=== PATIENT | female | born 1950 | race Caucasian/White ===

== ENCOUNTER 2016-10-11 09:57 | Emergency (ER) | payer MEDICARE ==
[~2016-10-11] VITALS: Ht 160 cm; Wt 75.0 kg
[~2016-10-11 09:57] MED LIST: ALPR.25 PO; CALTTAB PO; FAMO40TA PO; FURO40TA PO; GABA400C5 PO; PHEN100 PO; PREG100 PO; PROT40TA PO; SERO100T PO; SERT100 PO
[2016-10-11 09:58] VITALS: BP 191/85; PULSE 85; RESP 14; TEMP 98.4; O2SAT 96
[2016-10-11] MEDS ORDERED: FAMO40TA PO (10:42)
[2016-10-11] MEDS ORDERED: CALTTAB PO (10:42)
[2016-10-11] MEDS ORDERED: ALPR.25 PO (10:42)
[2016-10-11] MEDS ORDERED: GABA100C4 PO (10:42)
[2016-10-11] MEDS ORDERED: LYRI200C PO (10:42)
[2016-10-11] MEDS ORDERED: SERO100T PO (10:44)
[2016-10-11] MEDS ORDERED: LYRI100C PO (10:44)
[2016-10-11] MEDS ORDERED: PANT20 PO (10:44)
[2016-10-11] MEDS ORDERED: PHEN100C PO (10:44)
[2016-10-11] MEDS ORDERED: ZOLO100T PO (10:44)
--- NOTE | 2016-10-11 10:44 | PD ---
HPI Chief Complaint: Dizziness Time Seen by Provider: 10:26 Travel History International Travel<30 days: No Contact w/Intl Traveler<30days: No Traveled to known affect area: No History of Present Illness HPI This is a 66-year-old female who presents to the emergency department with dizziness that's been going on over the past week, worsening, associated with several falls. She describes the dizziness as lightheadedness. She said the worst fall was yesterday when she fell in her bathtub and hit her head. She did not pass out at the time. She denies any loss of bowel or bladder, denies any chest pain or shortness of breath. She says she always feels little bit dizzy but over the past week it's been much worse. She doesn't feel like this is vertigo and denies the room spinning. She does have a history of DVT and is currently off of anticoagulation. She also used to be on a diuretic but is not taking that anymore either. She is not sure why she had the DVT and doesn't know why she was on the diuretic but thinks it was for the blood clot. She walks with a walker and lives alone. PFSH Past Medical History Arthritis: Yes Asthma: No Autoimmune Disease: No Anxiety: Yes Depression: Yes Cancer: No Cardiovascular Problems: No Chest Pain: No Cerebrovascular Accident: No Diabetes: No Diminished Hearing: No Deep Vein Thrombosis: Yes Endocrine: No Gastrointestinal Disorders: Yes GERD: Yes Genitourinary: Yes Headaches: Yes Hypertension: Yes Immune Disorder: No Kidney Stones: No Musculoskeletal: Yes (SCIATICA) Neurologic: Yes Psychiatric: Yes Reproductive: No Respiratory: No Immunizations Current: Yes Migraines: No Myocardial Infarction: No Seizures: Yes Sleep Apnea: No Thyroid Disease: No Ulcer: No Menopausal: Yes : 3 Para: 3 Tubal Ligation: Yes Past Surgical History Appendectomy: Yes Gynecologic Surgery: Yes (HYSTERECTOMY, TUBAL LIGATION) Hysterectomy: Yes Pacemaker: No Tonsillectomy: Yes Social History Alcohol Use: No Tobacco Use: No (QUIT IN 2003) Substance Use: No Allergies-Medications (Allergen,Severity, Reaction): Coded Allergies: No Known Allergies (Verified , 10/11/16) Reported Meds & Prescriptions Reported Meds & Active Scripts Active Reported Zoloft (Sertraline HCl) 100 Mg Tab 100 Mg PO DAILY Seroquel (Quetiapine Fumarate) 100 Mg Tab 100 Mg PO BID Phenytoin Extended 100 Mg Cap 100 Mg PO TID Protonix (Pantoprazole Sodium) 20 Mg Tab 20 Mg PO DAILY Lyrica (Pregabalin) 100 Mg Cap 100 Mg PO BID Gabapentin 100 Mg Cap 100 Mg PO BID Famotidine 40 Mg Tab 40 Mg PO BID Caltrate 600+D (Calcium Carbonate-Cholecalciferol) 600-800 Mg-Unit Tab 1 Tab PO BID Xanax (Alprazolam) 0.25 Mg Tab 0.25 Mg PO Q4H PRN Review of Systems Except as stated in HPI: all other systems reviewed are Neg Physical Exam Narrative GENERAL:Well appearing, no acute distress SKIN: Warm and dry. HEAD: Atraumatic. Normocephalic. EYES: Pupils equal and round. No injection or drainage. ENT: Moist mucous membranes NECK: Trachea midline. CARDIOVASCULAR: Regular rate and rhythm. No murmur appreciated. 2+ bilateral pitting edema RESPIRATORY: Clear to auscultation. Breath sounds equal bilaterally. GASTROINTESTINAL: Abdomen soft, non-tender, nondistended. MUSCULOSKELETAL: No obvious deformities. NEUROLOGICAL: Awake and alert. No obvious cranial nerve deficits. Moving all extremities. PSYCHIATRIC: Appropriate mood and affect; insight and judgment normal. Data Data Last Documented VS Vital Signs Date Time Temp Pulse Resp B/P Pulse Ox O2 Delivery O2 Flow Rate FiO2 10/11/16 09:58 98.4 85 14 191/85 96 Room Air Orders Electrocardiogram (10/11/16 10:41) Complete Blood Count With Diff (10/11/16 10:41) Comprehensive Metabolic Panel (10/11/16 10:41) B-Type Natriuretic Peptide (10/11/16 10:41) Troponin I (10/11/16 10:41) Urinalysis - C+S If Indicated (10/11/16 10:41) Chest, Single Ap (10/11/16 10:41) Ct Brain W/O Iv Contrast(Rout) (10/11/16 10:41) Ecg Monitoring (10/11/16 10:41) Iv Access Insert/Monitor (10/11/16 10:41) Oximetry (10/11/16 10:41) Sodium Chloride 0.9% Flush (Ns Flush) (10/11/16 10:45) D-Dimer (10/11/16 10:41) Urine Culture (10/11/16 11:05) Labs Laboratory Tests Test 10/11/16 10/11/16 10:55 11:05 White Blood Count 8.6 TH/MM3 Red Blood Count 4.33 MIL/MM3 Hemoglobin 13.4 GM/DL Hematocrit 39.5 % Mean Corpuscular Volume 91.1 FL Mean Corpuscular Hemoglobin 30.9 PG Mean Corpuscular Hemoglobin 33.9 % Concent Red Cell Distribution Width 13.9 % Platelet Count 251 TH/MM3 Mean Platelet Volume 8.5 FL Neutrophils (%) (Auto) 50.7 % Lymphocytes (%) (Auto) 36.3 % Monocytes (%) (Auto) 9.2 % Eosinophils (%) (Auto) 3.3 % Basophils (%) (Auto) 0.5 % Neutrophils # (Auto) 4.3 TH/MM3 Lymphocytes # (Auto) 3.1 TH/MM3 Monocytes # (Auto) 0.8 TH/MM3 Eosinophils # (Auto) 0.3 TH/MM3 Basophils # (Auto) 0.0 TH/MM3 CBC Comment DIFF FINAL Differential Comment D-Dimer Quantitative (PE/DVT) 0.33 MG/L FEU Sodium Level 139 MEQ/L Potassium Level 4.3 MEQ/L Chloride Level 105 MEQ/L Carbon Dioxide Level 25.4 MEQ/L Anion Gap 9 MEQ/L Blood Urea Nitrogen 16 MG/DL Creatinine 0.89 MG/DL Estimat Glomerular Filtration 63 ML/MIN Rate Random Glucose 89 MG/DL Calcium Level 8.6 MG/DL Total Bilirubin 0.2 MG/DL Aspartate Amino Transf 21 U/L (AST/SGOT) Alanine Aminotransferase 25 U/L (ALT/SGPT) Alkaline Phosphatase 91 U/L Troponin I LESS THAN 0.02 NG/ML B-Type Natriuretic Peptide 14 PG/ML Total Protein 7.2 GM/DL Albumin 3.6 GM/DL Urine Color YELLOW Urine Turbidity CLOUDY Urine pH 6.5 Urine Specific Korbel 1.018 Urine Protein TRACE mg/dL Urine Glucose (UA) NEG mg/dL Urine Ketones NEG mg/dL Urine Occult Blood SMALL Urine Nitrite POS Urine Bilirubin NEG Urine Urobilinogen LESS THAN 2.0 MG/DL Urine Leukocyte Esterase LARGE Urine RBC 14 /hpf Urine WBC /hpf Urine WBC Clumps FEW Urine Squamous Epithelial 7 /hpf Cells Urine Transitional Epithelial 1 /hpf Cells Urine Bacteria MANY /hpf Urine Mucus FEW /lpf Microscopic Urinalysis Comment CULTURE INDICATED MDM Medical Decision Making Medical Screen Exam Complete: Yes Emergency Medical Condition: Yes Interpretation(s) EKG: Normal sinus rhythm with no ST changes No leukocytosis Electrolytes within normal limits Troponin normal BNP normal D-dimer normal Urinalysis: Infection Differential Diagnosis Intracranial hemorrhage, arrhythmia, seizure, aortic stenosis, dehydration, urinary tract infection, pulmonary embolism Narrative Course This is a 66-year-old female who presents to the emergency department having had frequent falls, dizziness, and generalized weakness. She has a normal neurologic exam. She is placed on a monitor and an IV was established. Labs are obtained which were all reassuring including a normal troponin and normal d- dimer. EKG was reassuring with no evidence of arrhythmia. Urinalysis demonstrates a urinary tract infection which I suspect is the etiology of her symptoms. Patient was given a dose of IV ceftriaxone and will be discharged on Keflex. Diagnosis Primary Impression: UTI (urinary tract infection) Qualified Code: N30.01 - Acute cystitis with hematuria Patient Instructions: General Instructions Additional Instructions: If you develop fever, persistent vomiting, back pain, or inability to eat return to the emergency department as your urine infection may have progressed to a kidney infection. Complete your antibiotics as prescribed. Stay well hydrated with Gatorade or water. Followup with your primary care physician in 2-3 days if your symptoms have not resolved. Med/Other Pt SpecificInfo: Prescription(s) given Scripts Cephalexin (Keflex)500 Mg [id number] Mg PO Q12H 7 Days Ref 0 Prov:Deepali Escamilla MD 10/11/16 Disposition: 01 DISCHARGE HOME Condition: Stable Deepali Escamilla MD Oct 11, 2016 10:44
[2016-10-11] MEDS ORDERED: SODIUM CHLORIDE 0.9% FLUSH 5 ML FLUSH IVF PRN (10:45)
[2016-10-11 11:24] LABS: AUTOMATED NEUTROPHIL # 4.3 TH/MM3 (1.8-7.7); BASOPHIL % 0.5 % (0.0-2.0); EOSINOPHIL # 0.3 TH/MM3 (0-0.4); EOSINOPHIL % 3.3 % (0.0-4.0); HEMATOCRIT 39.5 % (35.0-46.0); HEMO FLAGS DIFF FINAL; LYMPH % 36.3 % (9.0-44.0); LYMPHOCYTE # 3.1 TH/MM3 (1.0-4.8); MEAN CELL VOLUME 91.1 FL (80.0-100.0); MEAN CORPUSCULAR HEMOGLOBIN 30.9 PG (27.0-34.0); MEAN CORPUSCULAR HGB CONC 33.9 % (32.0-36.0); MONO % 9.2 % (0.0-8.0); NEUT % 50.7 % (16.0-70.0); PLATELET COUNT 251 TH/MM3 (150-450); RED BLOOD COUNT 4.33 MIL/MM3 (4.00-5.30); RED CELL DISTRIBUTION WIDTH 13.9 % (11.6-17.2); WHITE BLOOD COUNT 8.6 TH/MM3 (4.0-11.0)
--- NOTE | 2016-10-11 11:36 | RADRPT ---
EXAM DATE/TIME: 10/11/2016 11:10 [facility] COMPARISON: CT BRAIN W/O CONTRAST, October 25, 2014, 14:20. INDICATIONS : Dizziness and multiple falls x 1 week. RADIATION DOSE: 46.17 CTDIvol (mGy) MEDICAL HISTORY : Deep venous thrombosis. Seizures. Hypertension. SURGICAL HISTORY : Hysterectomy. Tubal ligation. ENCOUNTER: Initial ACUITY: 1 week PAIN SCALE: 4/10 LOCATION: cranial TECHNIQUE: Multiple contiguous axial images were obtained of the head. Using automated exposure control and adj ustment of the mA and/or kV according to patient size, radiation dose was kept as low as reasonably a chievable to obtain optimal diagnostic quality images. FINDINGS: CEREBRUM: The ventricles are normal for age. No evidence of midline shift, mass lesion, hemorrhage or acute in farction. No extra-axial fluid collections are seen. POSTERIOR FOSSA: The cerebellum and brainstem are intact. The 4th ventricle is midline. The cerebellopontine angle i s unremarkable. EXTRACRANIAL: The visualized portion of the orbits is intact. SKULL: The calvaria is intact. No evidence of skull fracture. CONCLUSION: Normal examination for a patient of this age. Flo Joy MD on October 11, 2016 at 11:35 Board Certified Radiologist. This report was verified electronically.
[2016-10-11 11:39] LABS: ALT (GPT) 25 U/L (10-53); ANION GAP 9 MEQ/L (5-15); AST (GOT) 21 U/L (15-37); BICARBONATE 25.4 MEQ/L (21.0-32.0); BLOOD UREA NITROGEN 16 MG/DL (7-18); CHLORIDE 105 MEQ/L (98-107); GLOMERULAR FILTRATION RATE 63 ML/MIN (>89); POTASSIUM 4.3 MEQ/L (3.5-5.1); SODIUM (NA) 139 MEQ/L (136-145)
--- NOTE | 2016-10-11 11:41 | RADRPT ---
EXAM DATE/TIME: 10/11/2016 11:16 [facility] COMPARISON: CHEST SINGLE AP, October 25, 2014, 14:11. INDICATIONS : Syncope, falls,weakness, x1 week. MEDICAL HISTORY : None. SURGICAL HISTORY : None. ENCOUNTER: Initial ACUITY: 2 days PAIN SCORE: 0/10 LOCATION: Bilateral chest FINDINGS: A single view of the chest demonstrates the lungs to be symmetrically aerated without evidence of mas s, infiltrate or effusion. The cardiomediastinal contours are unremarkable. Osseous structures are intact. Right upper lobe scarring. CONCLUSION: No acute disease. Flo Joy MD on October 11, 2016 at 11:39 Board Certified Radiologist. This report was verified electronically.
[2016-10-11 11:43] LABS: ALKALINE PHOSPHATASE 91 U/L (45-117); TOTAL BILIRUBIN ADULT 0.2 MG/DL (0.2-1.0)
[2016-10-11 11:55] LABS: BACTERIA, URINE MANY /hpf; BLOOD, URINE SMALL (NEG); COMMENT (UR) CULTURE INDICATED; CULTURE IF INDICATED CULTURE INDICATED; GLUCOSE,URINE NEG (NEG); KETONE, URINE NEG (NEG); MUCUS URINE FEW /lpf (OCC); PH, URINE 6.5 (5.0-8.5); SQUAMOUS EPITHELIAL CELL URINE 7 /hpf (0-5); TRANSITIONAL EPI CELLS, URINE 1 /hpf; URINE COLOR YELLOW (YELLW/STRAW)
[2016-10-11 11:56] LABS: NITRITE,URINE POS (NEG)
[2016-10-11] MEDS ORDERED: cefTRIAXone INJ 1,000 MG in SODIUM CHLORIDE 0.9% INJ 100 ML IV ONE (12:15)
[2016-10-11] MEDS ORDERED: CEPH-460 PO (12:22)
[2016-10-11 12:26] VITALS: BP 154/91; PULSE 76; RESP 17; O2SAT 98
--- NOTE | 2016-10-11 18:33 | EKG ---
Date Performed: 10/11/2016 Time Performed: 10:49:14 PTAGE: 66 years EKG: Sinus rhythm Since previous tracing, no significant change noted NORMAL ECG PREVIOUS TRACING : 10/28/2014 18.48 DOCTOR: Loyda Hull Interpretating Date/Time 10/11/2016 18:31:46
== END 2016-10-11 13:19 | disposition home or self-care (01) ==
LOC: NEPC 09:57
DX: N39.0 Urinary tract infection, site not specified (principal); Z86.718 Personal history of other venous thrombosis and embolism; B96.20 Unspecified Escherichia coli [E. coli] as the cause of diseases classified elsewhere; R53.1 Weakness; R55 Syncope and collapse; I10 Essential (primary) hypertension; Z91.81 History of falling
CPT/HCPCS: 70450; 71010; 80053; 81001; 83880; 84484; 85025; 85379; 87077; 87086; 87186; 93005; 96374; 99284; J0696

== ENCOUNTER 2016-10-14 10:46 | Inpatient (IN) | payer MEDICARE ==
[2016-10-14] VITALS (7 sets, daily range): BP systolic 136–205; BP diastolic 68–103; PULSE 71–85; RESP 15–20; TEMP 97.5; O2SAT 94–98
[~2016-10-14] VITALS: Ht 162.6 cm; Wt 80.0 kg
[~2016-10-14 10:46] MED LIST changes: +CEPH-460 PO; -FURO40TA PO; +GABA100C4 PO; -GABA400C5 PO; +LYRI100C PO; +PANT20 PO; -PHEN100 PO; +PHEN100C PO; -PREG100 PO; -PROT40TA PO; -SERT100 PO; +ZOLO100T PO
--- NOTE | 2016-10-14 11:20 | PD ---
HPI Chief Complaint: General Weakness Stated Complaint: FALL/DIZZY/WEAK Time Seen by Provider: 11:19 Travel History International Travel<30 days: No Contact w/Intl Traveler<30days: No Known affected area: No History of Present Illness HPI 66 year-old female presents to emergency department again today for evaluation of dizziness that has persisted over the last couple of weeks. Patient was seen and evaluated on October 11, 2016 CT of the brain was done at that time with no acute intracranial abnormality identified. Patient was discharged home and she states that she attempted the medication that she was prescribed but it only made things worse. Denies any headache. States that she does fall frequently and feels weak. She states that tasks as simple as getting dressed cause her to become dizzy and she ends up falling to the ground. She is uncertain if she struck her head or not but states "probably so." Denies any pain. No focal deficits or weakness. No chest pain or tightness. No difficulty breathing. She has no other symptoms to report. History Social History Alcohol Use: No Tobacco Use: No (QUIT IN 2003) Allergies-Medications (Allergen,Severity, Reaction): Coded Allergies: No Known Allergies (Verified , 10/11/16) Reported Meds & Prescriptions Reported Meds & Active Scripts Active Keflex (Cephalexin) 500 Mg Cap 500 Mg PO Q12H 7 Days Reported Zoloft (Sertraline HCl) 100 Mg Tab 100 Mg PO DAILY Seroquel (Quetiapine Fumarate) 100 Mg Tab 100 Mg PO BID Phenytoin Extended 100 Mg Cap 100 Mg PO TID Protonix (Pantoprazole Sodium) 20 Mg Tab 20 Mg PO DAILY Lyrica (Pregabalin) 100 Mg Cap 100 Mg PO BID Gabapentin 100 Mg Cap 100 Mg PO BID Famotidine 40 Mg Tab 40 Mg PO BID Caltrate 600+D (Calcium Carbonate-Cholecalciferol) 600-800 Mg-Unit Tab 1 Tab PO BID Xanax (Alprazolam) 0.25 Mg Tab 0.25 Mg PO Q4H PRN Review of Systems Except as stated in HPI: all other systems reviewed are Neg Physical Exam Narrative GENERAL: Well-nourished female patient, ambulatory and in no acute distress. SKIN: Warm and dry. HEAD: Atraumatic. Normocephalic. EYES: Pupils equal and round. No scleral icterus. No injection or drainage. ENT: No nasal bleeding or discharge. Mucous membranes pink and moist. NECK: Trachea midline. No JVD. CARDIOVASCULAR: Regular rate and rhythm. No murmur appreciated. RESPIRATORY: No accessory muscle use. Clear to auscultation. Breath sounds equal bilaterally. GASTROINTESTINAL: Abdomen soft, non-tender, nondistended. Hepatic and splenic margins not palpable. MUSCULOSKELETAL: No obvious deformities. No clubbing. No cyanosis. No edema. NEUROLOGICAL: Awake and alert. No obvious cranial nerve deficits. Motor grossly within normal limits. Normal speech. PSYCHIATRIC: Appropriate mood and affect; insight and judgment normal. Data Data Last Documented VS Vital Signs Date Time Temp Pulse Resp B/P Pulse Ox O2 Delivery O2 Flow Rate FiO2 10/14/16 10:50 97.5 85 15 187/86 98 Orders Electrocardiogram (10/14/16 10:48) Complete Blood Count With Diff (10/14/16 10:48) Basic Metabolic Panel (Bmp) (10/14/16 10:48) Ckmb (Isoenzyme) Profile (10/14/16 10:48) Troponin I (10/14/16 10:48) Chest, Single Ap (10/14/16 10:48) Iv Access Insert/Monitor (10/14/16 10:48) Ecg Monitoring (10/14/16 10:48) Oxygen Administration (10/14/16 10:48) Oximetry (10/14/16 10:48) Labs Laboratory Tests Test 10/14/16 11:15 White Blood Count 10.8 TH/MM3 Red Blood Count 4.47 MIL/MM3 Hemoglobin 13.8 GM/DL Hematocrit 42.1 % Mean Corpuscular Volume 94.3 FL Mean Corpuscular Hemoglobin 31.0 PG Mean Corpuscular Hemoglobin 32.9 % Concent Red Cell Distribution Width 13.9 % Platelet Count 228 TH/MM3 Mean Platelet Volume 7.8 FL Neutrophils (%) (Auto) 56.5 % Lymphocytes (%) (Auto) 28.2 % Monocytes (%) (Auto) 9.6 % Eosinophils (%) (Auto) 5.0 % Basophils (%) (Auto) 0.7 % Neutrophils # (Auto) 6.1 TH/MM3 Lymphocytes # (Auto) 3.1 TH/MM3 Monocytes # (Auto) 1.0 TH/MM3 Eosinophils # (Auto) 0.5 TH/MM3 Basophils # (Auto) 0.1 TH/MM3 CBC Comment DIFF FINAL Differential Comment Sodium Level 140 MEQ/L Potassium Level 4.1 MEQ/L Chloride Level 106 MEQ/L Carbon Dioxide Level 27.4 MEQ/L Anion Gap 7 MEQ/L Blood Urea Nitrogen 16 MG/DL Creatinine 0.91 MG/DL Estimat Glomerular Filtration 61 ML/MIN Rate Random Glucose 98 MG/DL Calcium Level 8.8 MG/DL Total Creatine Kinase 48 U/L Troponin I LESS THAN 0.02 NG/ML MDM Medical Decision Making Medical Screen Exam Complete: Yes Emergency Medical Condition: Yes Medical Record Reviewed: Yes Differential Diagnosis Vertigo versus intracranial etiology versus electrolyte abnormality versus cardiac etiology versus orthostatic hypotension Narrative Course 66 year-old female presents to the emergency department for evaluation of persistent sensation of dizziness with falls. Patient appears without distress. Exam is nonfocal. Workup was initiated in triage. Once a medical bed becomes available, patient will be transferred to the care of the provider at that pod. Diagnosis Primary Impression: Dizziness Condition: Stable Morelia Ortiz Oct 14, 2016 11:20
--- NOTE | 2016-10-14 11:28 | RADRPT ---
EXAM DATE/TIME: 10/14/2016 10:49 [facility] COMPARISON: CHEST SINGLE AP, October 25, 2014, 14:11. CHEST SINGLE AP, October 11, 2016, 11:16. INDICATIONS : Syncope, weakness MEDICAL HISTORY : None. SURGICAL HISTORY : None. ENCOUNTER: [facility] ACUITY: 2 weeks PAIN SCORE: 0/10 LOCATION: Bilateral chest FINDINGS: Stable area of pleural parenchymal scarring in the lateral right lung apex. Lungs are otherwise clear without evidence of acute infiltrate or effusion. Cardiomediastinal contours are stable and satisfac tory. CONCLUSION: No acute disease.. Umesh Onofre MD on October 14, 2016 at 11:18 Board Certified Radiologist. This report was verified electronically.
[2016-10-14 11:48] LABS: AUTOMATED NEUTROPHIL # 6.1 TH/MM3 (1.8-7.7); BASOPHIL # 0.1 TH/MM3 (0-0.2); BASOPHIL % 0.7 % (0.0-2.0); EOSINOPHIL # 0.5 TH/MM3 (0-0.4); HEMATOCRIT 42.1 % (35.0-46.0); HEMO FLAGS DIFF FINAL; LYMPH % 28.2 % (9.0-44.0); LYMPHOCYTE # 3.1 TH/MM3 (1.0-4.8); MEAN CELL VOLUME 94.3 FL (80.0-100.0); MEAN CORPUSCULAR HGB CONC 32.9 % (32.0-36.0); MONO % 9.6 % (0.0-8.0); NEUT % 56.5 % (16.0-70.0); PLATELET COUNT 228 TH/MM3 (150-450); RED BLOOD COUNT 4.47 MIL/MM3 (4.00-5.30); RED CELL DISTRIBUTION WIDTH 13.9 % (11.6-17.2); WHITE BLOOD COUNT 10.8 TH/MM3 (4.0-11.0)
[2016-10-14 12:04] LABS: ANION GAP 7 MEQ/L (5-15); BICARBONATE 27.4 MEQ/L (21.0-32.0); BLOOD UREA NITROGEN 16 MG/DL (7-18); CHLORIDE 106 MEQ/L (98-107); GLOMERULAR FILTRATION RATE 61 ML/MIN (>89); POTASSIUM 4.1 MEQ/L (3.5-5.1); SODIUM (NA) 140 MEQ/L (136-145)
[2016-10-14 12:08] LABS: CREATINE KINASE 48 U/L (26-192)
--- NOTE | 2016-10-14 14:20 | RADRPT ---
EXAM DATE/TIME: 10/14/2016 14:05 [facility] COMPARISON: No previous studies available for comparison. INDICATIONS : Dizziness, weakness. RADIATION DOSE: 39.95 CTDIvol (mGy) MEDICAL HISTORY : Seizures. Hypertension. SURGICAL HISTORY : None. ENCOUNTER: Initial ACUITY: 2 weeks PAIN SCALE: 0/10 LOCATION: cranial TECHNIQUE: Multiple contiguous axial images were obtained of the head. Using automated exposure control and adj ustment of the mA and/or kV according to patient size, radiation dose was kept as low as reasonably a chievable to obtain optimal diagnostic quality images. FINDINGS: CEREBRUM: The ventricles are normal for age. No evidence of midline shift, mass lesion, hemorrhage or acute in farction. No extra-axial fluid collections are seen. POSTERIOR FOSSA: The cerebellum and brainstem are intact. The 4th ventricle is midline. The cerebellopontine angle i s unremarkable. EXTRACRANIAL: The visualized portion of the orbits is intact. SKULL: The calvaria is intact. No evidence of skull fracture. CONCLUSION: 1. No acute intracranial abnormalities. Cortical volume loss. Douglas Luna MD on October 14, 2016 at 14:16 Board Certified Radiologist. This report was verified electronically.
--- NOTE | 2016-10-14 14:45 | PD ---
HPI Chief Complaint: General Weakness Time Seen by Provider: 14:43 Travel History International Travel<30 days: No Contact w/Intl Traveler<30days: No Traveled to known affect area: No History of Present Illness HPI 66-year-old female that presents to the ED for evaluation of dizziness and inability to ambulate secondary to lightheadedness. Per patient she was seen here 2 days ago for same. Patient was diagnosed with UTI and states that ever since starting the new antibiotic she feels worse. Per patient she can barely stand up without feeling lightheaded. Per patient she's fallen multiple times. Per patient she does not lose consciousness but she feels lightheaded and then she feels weak in her legs and then she falls. Per patient she is concerned because she's never had like this before. She lives by herself. Her friends are concerned because she stays by herself and she has fallen hit her head multiple times. She denies taking any blood thinners. He states been compliant with the medications given to her. She does have a history of having a pressure and diabetes. No allergies to medication. No chest pain or shortness of breath. Per patient she doesn't have any blurry vision or double vision. No loss of vision. No abdominal pain. No nausea or vomiting. No urinary complaints. PFSH Past Medical History Arthritis: Yes Asthma: No Autoimmune Disease: No Anxiety: Yes Depression: Yes Cancer: No Cardiovascular Problems: No Chest Pain: No Cerebrovascular Accident: No Diabetes: No Diminished Hearing: No Deep Vein Thrombosis: Yes Endocrine: No Gastrointestinal Disorders: Yes GERD: Yes Genitourinary: Yes Headaches: Yes Hypertension: Yes Immune Disorder: No Kidney Stones: No Musculoskeletal: Yes (SCIATICA) Neurologic: Yes Psychiatric: Yes Reproductive: No Respiratory: No Immunizations Current: Yes Migraines: No Myocardial Infarction: No Seizures: Yes Sleep Apnea: No Thyroid Disease: No Ulcer: No Influenza Vaccination: Yes ?: Not Menopausal: Yes : 3 Para: 3 Tubal Ligation: Yes Past Surgical History Appendectomy: Yes Gynecologic Surgery: Yes (HYSTERECTOMY, TUBAL LIGATION) Hysterectomy: Yes Pacemaker: No Tonsillectomy: Yes Social History Alcohol Use: No Tobacco Use: No (QUIT IN 2003) Substance Use: No Allergies-Medications (Allergen,Severity, Reaction): Coded Allergies: No Known Allergies (Verified , 10/14/16) Reported Meds & Prescriptions Reported Meds & Active Scripts Active Keflex (Cephalexin) 500 Mg Cap 500 Mg PO Q12H 7 Days Reported Zoloft (Sertraline HCl) 100 Mg Tab 100 Mg PO DAILY Seroquel (Quetiapine Fumarate) 100 Mg Tab 100 Mg PO BID Phenytoin Extended 100 Mg Cap 100 Mg PO TID Protonix (Pantoprazole Sodium) 20 Mg Tab 20 Mg PO DAILY Gabapentin 100 Mg Cap 100 Mg PO BID Famotidine 40 Mg Tab 40 Mg PO BID Caltrate 600+D (Calcium Carbonate-Cholecalciferol) 600-800 Mg-Unit Tab 1 Tab PO BID Xanax (Alprazolam) 0.25 Mg Tab 0.25 Mg PO Q4H PRN Review of Systems Except as stated in HPI: all other systems reviewed are Neg Physical Exam Narrative GENERAL: SKIN: Warm and dry. HEAD: Atraumatic. Normocephalic. EYES: Pupils equal and round 4 mm reactive to light and accommodation. No scleral icterus. No injection or drainage. ENT: No nasal bleeding or discharge. Mucous membranes pink and moist. Tongue is midline. No uvula deviation. NECK: Trachea midline. No JVD. CARDIOVASCULAR: Regular rate and rhythm. No murmurs, S3, S4. RESPIRATORY: No accessory muscle use. Clear to auscultation. Breath sounds equal bilaterally. GASTROINTESTINAL: Abdomen soft, non-tender, nondistended. Hepatic and splenic margins not palpable. MUSCULOSKELETAL: Extremities without clubbing, cyanosis, or edema. No obvious deformities. Full range of motion of the upper and lower extremities bilaterally. 2+ pulses bilaterally. NEUROLOGICAL: Awake and alert. No obvious cranial nerve deficits. Motor grossly within normal limits. Five out of 5 muscle strength in the arms and legs. Normal speech. DTRs are 2+ bilaterally. Sensation intact bilaterally. 5 out of 5 integrated circuit design engineer strength. With standing patient is very uneasy and feels lightheaded. PSYCHIATRIC: Appropriate mood and affect; insight and judgment normal. Data Data Last Documented VS Vital Signs Date Time Temp Pulse Resp B/P Pulse Ox O2 Delivery O2 Flow Rate FiO2 10/14/16 15:35 71 20 205/87 96 Room Air 10/14/16 10:50 97.5 Orders Electrocardiogram (10/14/16 10:48) Complete Blood Count With Diff (10/14/16 10:48) Basic Metabolic Panel (Bmp) (10/14/16 10:48) Ckmb (Isoenzyme) Profile (10/14/16 10:48) Troponin I (10/14/16 10:48) Chest, Single Ap (10/14/16 10:48) Iv Access Insert/Monitor (10/14/16 10:48) Ecg Monitoring (10/14/16 10:48) Oxygen Administration (10/14/16 10:48) Oximetry (10/14/16 10:48) Orthostatic Vital Signs (10/14/16 13:29) Urinalysis - C+S If Indicated (10/14/16 13:29) Ct Brain W/O Iv Contrast(Rout) (10/14/16 ) Lactic Acid (10/14/16 13:37) Urine Culture (10/14/16 14:55) Ciprofloxacin 400 Mg Premix (Cipro 400 M (10/14/16 15:30) Sodium Chlor 0.9% 1000 Ml Inj (Ns 1000 M (10/14/16 15:22) Enalapril (Vasotec) (10/14/16 16:00) Admit Order (Ed Use Only) (10/14/16 15:49) Labs Laboratory Tests Test 10/14/16 10/14/16 10/14/16 11:15 14:00 14:55 White Blood Count 10.8 TH/MM3 Red Blood Count 4.47 MIL/MM3 Hemoglobin 13.8 GM/DL Hematocrit 42.1 % Mean Corpuscular Volume 94.3 FL Mean Corpuscular Hemoglobin 31.0 PG Mean Corpuscular Hemoglobin 32.9 % Concent Red Cell Distribution Width 13.9 % Platelet Count 228 TH/MM3 Mean Platelet Volume 7.8 FL Neutrophils (%) (Auto) 56.5 % Lymphocytes (%) (Auto) 28.2 % Monocytes (%) (Auto) 9.6 % Eosinophils (%) (Auto) 5.0 % Basophils (%) (Auto) 0.7 % Neutrophils # (Auto) 6.1 TH/MM3 Lymphocytes # (Auto) 3.1 TH/MM3 Monocytes # (Auto) 1.0 TH/MM3 Eosinophils # (Auto) 0.5 TH/MM3 Basophils # (Auto) 0.1 TH/MM3 CBC Comment DIFF FINAL Differential Comment Sodium Level 140 MEQ/L Potassium Level 4.1 MEQ/L Chloride Level 106 MEQ/L Carbon Dioxide Level 27.4 MEQ/L Anion Gap 7 MEQ/L Blood Urea Nitrogen 16 MG/DL Creatinine 0.91 MG/DL Estimat Glomerular Filtration 61 ML/MIN Rate Random Glucose 98 MG/DL Calcium Level 8.8 MG/DL Total Creatine Kinase 48 U/L Troponin I LESS THAN 0.02 NG/ML Lactic Acid Level 1.2 mmol/L Urine Color YELLOW Urine Turbidity HAZY Urine pH 6.5 Urine Specific [place] 1.024 Urine Protein 30 mg/dL Urine Glucose (UA) NEG mg/dL Urine Ketones NEG mg/dL Urine Occult Blood SMALL Urine Nitrite NEG Urine Bilirubin NEG Urine Urobilinogen LESS THAN 2.0 MG/DL Urine Leukocyte Esterase LARGE Urine RBC 62 /hpf Urine WBC 73 /hpf Urine Squamous Epithelial 19 /hpf Cells Urine Bacteria RARE /hpf Urine Hyaline Casts 2 /lpf Microscopic Urinalysis Comment CULTURE INDICATED MDM Medical Decision Making Medical Screen Exam Complete: Yes Emergency Medical Condition: Yes Medical Record Reviewed: Yes Interpretation(s) CBC & BMP Diagram 10/14/16 11:15 Last Impressions Chest X-Ray 10/14/16 1048 Signed Impressions: Service Date/Time: October 10:49 - CONCLUSION: No acute disease.. Umesh Onofre MD Head CT 10/14/16 0000 Signed Impressions: Service Date/Time: October 14:05 - CONCLUSION: 1. No acute intracranial abnormalities. Cortical volume loss. Douglas Luna MD Troponin negative, taken be negative. EKG shows sinus rhythm with no sign of acute ischemia or arrhythmia. Read by me and attending. Urine shows signs of UTI. Differential Diagnosis Dizziness versus lightheadedness versus vertigo versus CVA versus hypertensive urgency versus hypertensive emergency versus UTI versus urosepsis Narrative Course 66-year-old female that presents to the ED for evaluation of dizziness and lightheadedness. Patient was properly examined and was found to have signs and symptoms consistent appears to be postural dizziness. Per patient she doesn't feel like the room is spinning but she is feels lightheaded like she is given a passout. Patient has had multiple falls. Patient had a workup just 2 days ago which was unremarkable other for UTI. Lab work was done by previous provider as well as imaging which was essentially unremarkable other than UA did show UTI still. Orthostatics were done. CT of the head were redone as patient does state that she did hit her head multiple times and this was all negative except for the again UTI. Patient has never had anything like this before. Because of her age and her symptoms I cannot rule out any sign of other etiology causing the symptoms. Patient has had 2 days of antibiotics with worsening symptoms. This time I recommend admission for at least IV antibiotics and workup of the syncope with possible MRIs as needed. Patient agrees with this. I discussed this with my attending who agrees with plan. [facility] Hospitalist was called. I spoke with PA for Dr. Rios who agrees to admission. Procedures EKG Prior to Arrival: No Diagnosis Primary Impression: Pre-syncope Additional Impression: UTI (urinary tract infection) Qualified Code: N30.01 - Acute cystitis with hematuria Admitting Information Admitting Physician Requests: Observation Condition: Stable Pramod Peña Oct 14, 2016 14:45 Pramod Peña Oct 14, 2016 14:45
[2016-10-14 15:20] LABS: BACTERIA, URINE RARE /hpf; BLOOD, URINE SMALL (NEG); GLUCOSE,URINE NEG (NEG); HYALINE CAST, URINE 2 /lpf (RARE); KETONE, URINE NEG (NEG); NITRITE,URINE NEG (NEG); PH, URINE 6.5 (5.0-8.5); SQUAMOUS EPITHELIAL CELL URINE 19 /hpf (0-5); URINE COLOR YELLOW (YELLW/STRAW)
[2016-10-14 15:21] LABS: COMMENT (UR) CULTURE INDICATED; CULTURE IF INDICATED CULTURE INDICATED
[2016-10-14] MEDS ORDERED: SODIUM CHLOR 0.9% 1000 ML INJ 1,000 ML IV SCH (15:22)
[2016-10-14] MEDS ORDERED: CIPROFLOXACIN 400 MG PREMIX 200 ML IV ONE (15:30)
[2016-10-14] MEDS ORDERED: SODIUM CHLORIDE 0.9% FLUSH 5 ML FLUSH FLUSH PRN (16:00)
[2016-10-14] MEDS ORDERED: NALOXONE HCL 0.4 MG/ML AMP IV PRN (16:00)
[2016-10-14] MEDS ORDERED: ENALAPRIL MALEATE 2.5 MG TAB PO ONE (16:00)
--- NOTE | 2016-10-14 17:06 | HHI.HP ---
HPI Service [facility] Primary Care Physician Fred Israel MD Admission Diagnosis presyncope, UTI with failed out patient treatment, hypertensive urge Diagnoses: Chief Complaint: falls, syncope x 2 weeks with worsening Travel History International Travel<30 Days: No Contact w/Intl Traveler <30 Da: No Traveled to Known Affected Are: No History of Present Illness 66 year old causacian female presents to the ER today with increased episodes of dizziness. She also has symptoms of dysuria. Patient was seen in the emergency room back on 10/11/16 evaluation of dizziness that has persisted over the past few weeks a CT of the brain was done at that time which showed no acute intracranial abnormality patient was discharged home with medication for a UTI. Patient states that she took antibiotics for 2 days but continued with dizzy spells which seem to worsen and become more frequent. She is positive for generalized weakness, but denies any chest pain. Patient denies any fever, no problems with her appetite, no headache. She denies any shortness of breath at this time, but does state that she does have some shortness of breath with activity. When she sits down to rest this shortness of breath goes away. Patient states that she cannot stand for extended periods of time without having the sensation of falling forward. Over the past few days she has had to sit down to do her ADLs, and doesn't feel like her dizziness is getting better Review of Systems ROS Limitations: Poor Historian (10 point review obtained with positives and negatives noted in HPI) Other 10 point review obtained; positives and negatives are noted in HPI. Poor historian. Past Family Social History Past Medical History Seizures Hypertension UTI Depression Anxiety Bipolar disorder GERD Sciatica X Menopause DVT left leg Tobacco abuse Past Surgical History Appendectomy Hysterectomy Tubal ligation Tonsillectomy Reported Medications See medication reconciliation sheet Allergies: Coded Allergies: No Known Allergies (Verified , 10/14/16) Family History Mother and father are both . Mother of cancer, father of [place] Social History Previous heavy tobacco abuse for greater than 20 years quit; smoking in 2003 No illicit drug use No alcohol use Physical Exam Vital Signs Vital Signs Date Time Temp Pulse Resp B/P Pulse Ox O2 Delivery O2 Flow Rate FiO2 10/14/16 15:35 71 20 205/87 96 Room Air 10/14/16 13:41 76 18 190/87 83 18 196/95 84 191/103 10/14/16 13:22 77 20 202/92 96 Room Air 10/14/16 10:50 97.5 85 15 187/86 98 Physical Exam GENERAL: This is a well-nourished, well-developed patient, in no apparent distress resting on stretcher. SKIN: No rashes, ecchymoses or lesions. Warm and dry. HEAD: Atraumatic. Normocephalic. No temporal or scalp tenderness. EYES: Pupils 2 mm equal round and reactive. Extraocular motions intact. No scleral icterus. No injection or drainage. ENT: Nose without bleeding, purulent drainage or septal hematoma. Throat without erythema, tonsillar hypertrophy or exudate. Uvula midline. Airway patent. NECK: Trachea midline. No JVD or lymphadenopathy. Supple, nontender, CARDIOVASCULAR: Regular rate and rhythm without murmurs, gallops, or rubs. Peripheral pulses intact. No edema RESPIRATORY: Clear to auscultation. Breath sounds equal bilaterally. Mild left lower lobe wheeze. No rales, or rhonchi. GASTROINTESTINAL: Abdomen soft, non-tender, nondistended. No hepato-splenomegaly , or palpable masses. No guarding. MUSCULOSKELETAL: Extremities without clubbing, cyanosis, or edema. No joint tenderness, effusion, or edema noted. No calf tenderness. NEUROLOGICAL: Awake and alert. Cranial nerves II through XII intact. Motor and sensory grossly within normal limits. Five out of 5 muscle strength in all muscle groups. Normal speech. Oriented to person place and time and situation. Does repeat herself frequently ; will answer questions to yes or no, then we'll change her answer Laboratory Laboratory Tests Test 10/14/16 10/14/16 10/14/16 11:15 14:00 14:55 White Blood Count 10.8 Red Blood Count 4.47 Hemoglobin 13.8 Hematocrit 42.1 Mean Corpuscular Volume 94.3 Mean Corpuscular Hemoglobin 31.0 Mean Corpuscular Hemoglobin 32.9 Concent Red Cell Distribution Width 13.9 Platelet Count 228 Mean Platelet Volume 7.8 Neutrophils (%) (Auto) 56.5 Lymphocytes (%) (Auto) 28.2 Monocytes (%) (Auto) 9.6 Eosinophils (%) (Auto) 5.0 Basophils (%) (Auto) 0.7 Neutrophils # (Auto) 6.1 Lymphocytes # (Auto) 3.1 Monocytes # (Auto) 1.0 Eosinophils # (Auto) 0.5 Basophils # (Auto) 0.1 CBC Comment DIFF FINAL Differential Comment Sodium Level 140 Potassium Level 4.1 Chloride Level 106 Carbon Dioxide Level 27.4 Anion Gap 7 Blood Urea Nitrogen 16 Creatinine 0.91 Estimat Glomerular Filtration 61 Rate Random Glucose 98 Calcium Level 8.8 Total Creatine Kinase 48 Troponin I LESS THAN 0.02 Lactic Acid Level 1.2 Urine Color YELLOW Urine Turbidity HAZY Urine pH 6.5 Urine Specific [place] 1.024 Urine Protein 30 Urine Glucose (UA) NEG Urine Ketones NEG Urine Occult Blood SMALL Urine Nitrite NEG Urine Bilirubin NEG Urine Urobilinogen LESS THAN 2.0 Urine Leukocyte Esterase LARGE Urine RBC 62 Urine WBC 73 Urine Squamous Epithelial 19 Cells Urine Bacteria RARE Urine Hyaline Casts 2 Microscopic Urinalysis Comment CULTURE INDICATED Date/Time Procedure Status Source Growth 10/14/16 14:55 Urine Culture Received Urine Clean Catch Pending Result Diagram: 10/14/16 1115 10/14/16 1115 Septic Shock Reassessment Heart: Regular rate and rhythm Lungs: Clear, Other (few mild crackles left base) Peripheral Pulses: Bounding Right Radial Bounding Left Radial Bounding Right Popliteal Bounding Left Popliteal Bounding Right Dorsalis Pedis Bounding Left Dorsalis Pedis Bounding Right Posterior Tibial Bounding Left Posterior Tibial Capillary Refill: Brisk Assessment and Plan Problem List: (1) Pre-syncope Plan: Monitor patient on telemetry. Echocardiogram ordered, bed rest with assistance anytime patient is up; educated patient to call if she has any signs of dizziness or headache. Monitor vital signs, medication management (2) Dizziness Plan: Monitor vital signs, monitor lab work medication management X Consult neurology for his expert opinion (3) Generalized weakness Plan: Safety parameters call if patient needs to be up. Will add therapy if warranted Assessment and Plan Falls/Difficulty ambulating. See above, treatment regimen secured around safety. Patient is to call if she needs to be OOB. Anxiety/Depression: Medication management Seizure disorder on a doctor for any seizure disorder such as tremors or change in neuro status, Code Status She has living will at home. States she will have 4 and bring it in. At this point in time full code full aggressive care Discussed With: Nurse, Other (Dr. Rios, ALYSSA, Macie) Physician Certification 2 Midnight Certification Type: Admission for Inpatient Services Order for Inpatient Services The services are ordered in accordance with Medicare regulations or non- Medicare payer requirements, as applicable. In the case of services not specified as inpatient-only, they are appropriately provided as inpatient services in accordance with the 2-midnight benchmark. Estimated LOS (days): 2 2 days is the estimated time the patient will need to remain in the hospital, assuming treatment plan goals are met and no additional complications. Post-Hospital Plan: Home Health Brittni Rios Oct 14, 2016 17:06 (1) Syncope: Qualified Code: R55 - Syncope, unspecified syncope type Brittni Rios Oct 14, 2016 17:06
--- NOTE | 2016-10-14 17:15 | PD ---
Physical Exam Date Seen by Provider: Oct 14, 2016 Time Seen by Provider: 15:00 Narrative I, Dr. Green, have reviewed the advance practice practitioner's documentation and am in agreement, met with the patient face to face, made the diagnosis, and the medical decision making was done by me. *My assessment and Findings: Patient seen and evaluated with PEA, please see previous notes for further details. Here with syncope, lightheadedness, no focal neurological deficits on evaluation. Laboratory Tests Test 10/14/16 10/14/16 11:15 14:55 Monocytes (%) (Auto) 9.6 % (0.0-8.0) Eosinophils (%) (Auto) 5.0 % (0.0-4.0) Monocytes # (Auto) 1.0 TH/MM3 (0-0.9) Eosinophils # (Auto) 0.5 TH/MM3 (0-0.4) Estimat Glomerular Filtration 61 ML/MIN (>89) Rate Troponin I LESS THAN 0.02 NG/ML (0.02-0.05) Urine Turbidity HAZY (CLEAR) Urine Protein 30 mg/dL (NEG-TRACE) Urine Occult Blood SMALL (NEG) Urine Leukocyte Esterase LARGE (NEG) Urine RBC 62 /hpf (0-3) Urine WBC 73 /hpf (0-5) Urine Bacteria RARE /hpf (NONE) Last 24 hours Impressions Chest X-Ray 10/14/16 1048 Signed Impressions: Service Date/Time: October 10:49 - CONCLUSION: No acute disease.. Umesh Onofre MD Head CT 10/14/16 0000 Signed Impressions: Service Date/Time: October 14:05 - CONCLUSION: 1. No acute intracranial abnormalities. Cortical volume loss. Douglas Luna MD CT did not indicate any signs of acute intercranial processes. Lab work otherwise did not show significant metabolic issues. She does have a UTI which is suspect could be causing some symptoms. As best initiated in the ER my plan would be to admit the patient for further evaluation and treatment. Case is discussed with [facility] hospitalist for admission. Data Data Last Documented VS Vital Signs Date Time Temp Pulse Resp B/P Pulse Ox O2 Delivery O2 Flow Rate FiO2 10/14/16 15:35 71 20 205/87 96 Room Air 10/14/16 10:50 97.5 Orders Electrocardiogram (10/14/16 10:48) Complete Blood Count With Diff (10/14/16 10:48) Basic Metabolic Panel (Bmp) (10/14/16 10:48) Ckmb (Isoenzyme) Profile (10/14/16 10:48) Troponin I (10/14/16 10:48) Chest, Single Ap (10/14/16 10:48) Iv Access Insert/Monitor (10/14/16 10:48) Ecg Monitoring (10/14/16 10:48) Oxygen Administration (10/14/16 10:48) Oximetry (10/14/16 10:48) Orthostatic Vital Signs (10/14/16 13:29) Urinalysis - C+S If Indicated (10/14/16 13:29) Ct Brain W/O Iv Contrast(Rout) (10/14/16 ) Lactic Acid (10/14/16 13:37) Urine Culture (10/14/16 14:55) Ciprofloxacin 400 Mg Premix (Cipro 400 M (10/14/16 15:30) Sodium Chlor 0.9% 1000 Ml Inj (Ns 1000 M (10/14/16 15:22) Enalapril (Vasotec) (10/14/16 16:00) Admit Order (Ed Use Only) (10/14/16 15:49) Vital Signs (Adult) Q4H (10/14/16 15:49) Neuro Checks Q4H (10/14/16 15:49) Activity Bed Rest With Brp (10/14/16 15:49) ^ Cyber Engineer / Telemetry .CONTINUOUS (10/14/16 15:49) Diet Heart Healthy (10/14/16 Dinner) Sodium Chloride 0.9% Flush (Ns Flush) (10/14/16 16:00) Sodium Chloride 0.9% Flush (Ns Flush) (10/14/16 21:00) Acetaminophen (Tylenol) (10/14/16 16:00) Ondansetron Inj (Zofran Inj) (10/14/16 16:00) Basic Metabolic Panel (Bmp) (10/15/16 06:00) Complete Blood Count With Diff (10/15/16 06:00) Pt Request For Service (10/14/16 15:49) Scd Bilateral/Knee High DAIANA.BID (10/14/16 15:49) Naloxone Inj (Narcan Inj) (10/14/16 16:00) Us Carotid Arteries Comp Bilat (10/14/16 ) Echo 2d Comp W/Dopp(Routine) (10/14/16 ) Labs Laboratory Tests Test 10/14/16 10/14/16 10/14/16 11:15 14:00 14:55 White Blood Count 10.8 TH/MM3 Red Blood Count 4.47 MIL/MM3 Hemoglobin 13.8 GM/DL Hematocrit 42.1 % Mean Corpuscular Volume 94.3 FL Mean Corpuscular Hemoglobin 31.0 PG Mean Corpuscular Hemoglobin 32.9 % Concent Red Cell Distribution Width 13.9 % Platelet Count 228 TH/MM3 Mean Platelet Volume 7.8 FL Neutrophils (%) (Auto) 56.5 % Lymphocytes (%) (Auto) 28.2 % Monocytes (%) (Auto) 9.6 % Eosinophils (%) (Auto) 5.0 % Basophils (%) (Auto) 0.7 % Neutrophils # (Auto) 6.1 TH/MM3 Lymphocytes # (Auto) 3.1 TH/MM3 Monocytes # (Auto) 1.0 TH/MM3 Eosinophils # (Auto) 0.5 TH/MM3 Basophils # (Auto) 0.1 TH/MM3 CBC Comment DIFF FINAL Differential Comment Sodium Level 140 MEQ/L Potassium Level 4.1 MEQ/L Chloride Level 106 MEQ/L Carbon Dioxide Level 27.4 MEQ/L Anion Gap 7 MEQ/L Blood Urea Nitrogen 16 MG/DL Creatinine 0.91 MG/DL Estimat Glomerular Filtration 61 ML/MIN Rate Random Glucose 98 MG/DL Calcium Level 8.8 MG/DL Total Creatine Kinase 48 U/L Troponin I LESS THAN 0.02 NG/ML Lactic Acid Level 1.2 mmol/L Urine Color YELLOW Urine Turbidity HAZY Urine pH 6.5 Urine Specific [place] 1.024 Urine Protein 30 mg/dL Urine Glucose (UA) NEG mg/dL Urine Ketones NEG mg/dL Urine Occult Blood SMALL Urine Nitrite NEG Urine Bilirubin NEG Urine Urobilinogen LESS THAN 2.0 MG/DL Urine Leukocyte Esterase LARGE Urine RBC 62 /hpf Urine WBC 73 /hpf Urine Squamous Epithelial 19 /hpf Cells Urine Bacteria RARE /hpf Urine Hyaline Casts 2 /lpf Microscopic Urinalysis Comment CULTURE INDICATED MDM Medical Record Reviewed: Yes Supervised Visit with ANGELES: Yes Diagnosis Primary Impression: Pre-syncope Additional Impression: UTI (urinary tract infection) Qualified Code: N30.01 - Acute cystitis with hematuria Admitting Information Admitting Physician Requests: Admit Condition: Stable Mini Green MD Oct 14, 2016 17:15
[2016-10-14] MEDS: PHENYTOIN SODIUM 100 MG CAP PO SCH (18:51)
[2016-10-14] MEDS ORDERED: GADODIAMIDE PF 287 MG/ML 20 ML VIAL (for RAD MRI) IV ONE (20:03)
--- NOTE | 2016-10-14 20:37 | RADRPT ---
EXAM DATE/TIME: 10/14/2016 19:52 [facility] COMPARISON: No previous studies available for comparison. INDICATIONS : Weakness. Syncope. CONTRAST: 16 cc Omniscan (gadodiamide) IV MEDICAL HISTORY : Seizures. SURGICAL HISTORY : Tubal ligation. Appendectomy. Hysterectomy. ENCOUNTER: Subsequent ACUITY: 1 day PAIN SCORE: 0/10 LOCATION: head. TECHNIQUE: Multiplanar, multisequence MRI of the brain was performed both prior to and following the administrat ion of paramagnetic contrast. FINDINGS: CEREBRUM: The ventricles are normal for age. No evidence of midline shift, mass lesion, hemorrhage or acute in farction. No extraaxial fluid collections are seen. The pituitary gland and suprasellar cistern are normal in configuration. There is atrophy. WHITE MATTER: A few scattered tiny foci of flair signal abnormality seen in the periventricular white matter of bot h cerebral hemispheres. POSTERIOR FOSSA: The cerebellum and brainstem are intact. The 4th ventricle is midline. The cerebellopontine angle is unremarkable. The cerebellar tonsils are normal in position. DIFFUSION IMAGING: No focal areas of restricted diffusion are seen. No evidence of acute infarction. EXTRACRANIAL: The visualized portions of the orbits and paranasal sinuses are unremarkable. POST-CONTRAST: No abnormal areas of parenchymal or dural enhancement. No evidence of blood-brain barrier breakdown. CONCLUSION: No acute intracranial abnormality. Atrophy and minimal chronic white matter changes are noted. Umesh Gallegos MD on October 14, 2016 at 20:34 Board Certified Radiologist. This report was verified electronically.
[2016-10-14] MEDS ORDERED: FAMOTIDINE 40 MG PO SCH (21:00)
[2016-10-14] MEDS ORDERED: CALCIUM CARBONATE CHOLECALCIFEROL PO SCH (21:00)
[2016-10-14] MEDS: CALCIUM/VITAMIN D 250 MG/125 U TAB PO SCH (22:12)
[2016-10-14] MEDS: SODIUM CHLORIDE 0.9% FLUSH 5 ML FLUSH FLUSH SCH (22:12)
[2016-10-14] MEDS: GABAPENTIN 100 MG CAP PO SCH (22:12)
[2016-10-14] MEDS: QUEtiapine FUMARATE 100 MG TAB PO SCH (22:13)
--- NOTE | 2016-10-15 00:02 | RADRPT ---
EXAM DATE/TIME: 10/14/2016 17:02 [place] COMPARISON: CTA CAROTID ARTERIES W 3D RECON, September 05, 2014, 10:39. US CAROTID ARTERIES, September 04, 2014, 1 6:14. INDICATIONS : Syncope. MEDICAL HISTORY : Hypertension. Gastroesophageal reflux disease. Dizziness. DVT. SURGICAL HISTORY : Appendectomy. Hysterectomy. Tubal ligation. Tonsillectomy. ENCOUNTER: Initial ACUITY: 3 days PAIN SCORE: 0/10 LOCATION: Bilateral neck PEAK SYSTOLIC VELOCITIES (cm/sec): ICA/CCA RATIO: Right: 1.5 Left: 1.4 ICA: Right: 103 Left: 131 CCA: Right: 67 Left: 91 ECA: Right: 253 Left: 90 VERTEBRAL: Right: 42 antegrade Left: 48 antegrade Elevated flow velocities and ICA/CCA ratios have been found to correlate with increased degrees of vessel stenosis, calculated as percentage of diameter relative to a normal segment of distal ICA/CCA FINDINGS: RIGHT CAROTID: Moderate amount of shadowing is seen about the carotid bulb and proximal internal carotid artery; a p rior CTA had demonstrated wall calcification and calcified plaque. There is no widening of the veloc ity spectrum in the internal carotid artery. LEFT CAROTID: There is some plaque in the proximal internal carotid artery without shadowing. The waveforms are wi thin normal limits. VERTEBRAL ARTERIES: Antegrade flow is seen in both vertebral arteries. MISCELLANEOUS: None. CONCLUSION: Bilateral carotid disease with hemodynamic profile characteristic of less than 50% stenosis. Ramsey Beebe MD on October 14, 2016 at 23:58 Board Certified Radiologist. This report was verified electronically.
[2016-10-15 00:03] VITALS: BP 137/65; PULSE 83; RESP 18; TEMP 98.2; O2SAT 97
[2016-10-15] MEDS: PEPCID PO SCH ×4 (00:20→23:00)
[2016-10-15 03:50] VITALS: BP 131/62; PULSE 83; RESP 18; TEMP 98; O2SAT 98
[2016-10-15] MEDS: ACETAMINOPHEN 325 MG TAB PO PRN (06:15)
[2016-10-15 07:57] LABS: AUTOMATED NEUTROPHIL # 5.8 TH/MM3 (1.8-7.7); BASOPHIL % 0.3 % (0.0-2.0); EOSINOPHIL # 0.5 TH/MM3 (0-0.4); EOSINOPHIL % 4.7 % (0.0-4.0); HEMATOCRIT 38.9 % (35.0-46.0); HEMO FLAGS DIFF FINAL; LYMPH % 30.4 % (9.0-44.0); LYMPHOCYTE # 3.3 TH/MM3 (1.0-4.8); MEAN CELL VOLUME 93.2 FL (80.0-100.0); MEAN CORPUSCULAR HEMOGLOBIN 31.1 PG (27.0-34.0); MEAN CORPUSCULAR HGB CONC 33.4 % (32.0-36.0); MONO % 11.6 % (0.0-8.0); PLATELET COUNT 231 TH/MM3 (150-450); RED BLOOD COUNT 4.18 MIL/MM3 (4.00-5.30)
[2016-10-15 08:11] LABS: BICARBONATE 27.8 MEQ/L (21.0-32.0); POTASSIUM 4.3 MEQ/L (3.5-5.1)
[2016-10-15] MEDS: QUEtiapine FUMARATE 100 MG TAB PO SCH ×2 (08:44→23:00)
[2016-10-15] MEDS: CALCIUM/VITAMIN D 250 MG/125 U TAB PO SCH ×2 (08:45→23:00)
[2016-10-15] MEDS: SERTRALINE HCL 100 MG TAB PO SCH (08:45)
[2016-10-15] MEDS: GABAPENTIN 100 MG CAP PO SCH ×2 (08:45→23:00)
[2016-10-15] MEDS: PHENYTOIN SODIUM 100 MG CAP PO SCH ×3 (08:45→18:11)
[2016-10-15] MEDS: SODIUM CHLORIDE 0.9% FLUSH 5 ML FLUSH FLUSH SCH ×2 (08:45→22:59)
[2016-10-15] MEDS ORDERED: PANTOPRAZOLE SOD 20 MG DELAYED RELEASE TAB PO SCH (09:00)
[2016-10-15] MEDS ORDERED: cloNIDine HCL 0.1 MG TAB PO PRN (09:30)
--- NOTE | 2016-10-15 09:33 | HHI.PR ---
Subjective Subjective Remarks sitting up no dizziness when standing, or head movement was out of bed to commode without problems BP improved, has not required meds overnight no cp no sob afebrile wants to go home Review of Systems Constitutional Constitutional Remarks 12 point ROS completed, negative except as noted above Vitals/Results Vital Signs Vital Signs Date Time Temp Pulse Resp B/P Pulse Ox O2 Delivery O2 Flow Rate FiO2 10/15/16 07:15 18 10/15/16 03:50 98.0 83 18 131/62 98 10/15/16 00:03 98.2 83 18 137/65 97 10/14/16 22:13 72 16 136/68 94 Room Air 10/14/16 19:00 74 16 141/71 97 Room Air 10/14/16 18:04 72 16 141/71 98 Room Air 10/14/16 15:35 71 20 205/87 96 Room Air 10/14/16 13:41 76 18 190/87 83 18 196/95 84 191/103 10/14/16 13:22 77 20 202/92 96 Room Air 10/14/16 10:50 97.5 85 15 187/86 98 CBC/BMP: 10/15/16 0613 10/15/16 0613 Lab Results Laboratory Tests Test 10/14/16 10/14/16 10/14/16 10/15/16 11:15 14:00 14:55 06:13 White Blood Count 10.8 TH/MM3 11.0 TH/MM3 Red Blood Count 4.47 MIL/MM3 4.18 MIL/MM3 Hemoglobin 13.8 GM/DL 13.0 GM/DL Hematocrit 42.1 % 38.9 % Mean Corpuscular Volume 94.3 FL 93.2 FL Mean Corpuscular Hemoglobin 31.0 PG 31.1 PG Mean Corpuscular Hemoglobin 32.9 % 33.4 % Concent Red Cell Distribution Width 13.9 % 14.0 % Platelet Count 228 TH/MM3 231 TH/MM3 Mean Platelet Volume 7.8 FL 8.2 FL Neutrophils (%) (Auto) 56.5 % 53.0 % Lymphocytes (%) (Auto) 28.2 % 30.4 % Monocytes (%) (Auto) 9.6 % 11.6 % Eosinophils (%) (Auto) 5.0 % 4.7 % Basophils (%) (Auto) 0.7 % 0.3 % Neutrophils # (Auto) 6.1 TH/MM3 5.8 TH/MM3 Lymphocytes # (Auto) 3.1 TH/MM3 3.3 TH/MM3 Monocytes # (Auto) 1.0 TH/MM3 1.3 TH/MM3 Eosinophils # (Auto) 0.5 TH/MM3 0.5 TH/MM3 Basophils # (Auto) 0.1 TH/MM3 0.0 TH/MM3 CBC Comment DIFF FINAL DIFF FINAL Differential Comment Sodium Level 140 MEQ/L 140 MEQ/L Potassium Level 4.1 MEQ/L 4.3 MEQ/L Chloride Level 106 MEQ/L 105 MEQ/L Carbon Dioxide Level 27.4 MEQ/L 27.8 MEQ/L Anion Gap 7 MEQ/L 7 MEQ/L Blood Urea Nitrogen 16 MG/DL 15 MG/DL Creatinine 0.91 MG/DL 0.74 MG/DL Estimat Glomerular Filtration 61 ML/MIN 78 ML/MIN Rate Random Glucose 98 MG/DL 88 MG/DL Calcium Level 8.8 MG/DL 8.3 MG/DL Total Creatine Kinase 48 U/L Troponin I LESS THAN 0.02 NG/ML Lactic Acid Level 1.2 mmol/L Urine Color YELLOW Urine Turbidity HAZY Urine pH 6.5 Urine Specific [place] 1.024 Urine Protein 30 mg/dL Urine Glucose (UA) NEG mg/dL Urine Ketones NEG mg/dL Urine Occult Blood SMALL Urine Nitrite NEG Urine Bilirubin NEG Urine Urobilinogen LESS THAN 2.0 MG/DL Urine Leukocyte Esterase LARGE Urine RBC 62 /hpf Urine WBC 73 /hpf Urine Squamous Epithelial 19 /hpf Cells Urine Bacteria RARE /hpf Urine Hyaline Casts 2 /lpf Microscopic Urinalysis Comment CULTURE INDICATED Microbiology Microbiology 10/14/16 Urine Culture, Received Pending Physical Exam General General Appearance: Well Developed, Well Nourished, No Acute Distress, Comfortable Eyes Eye Exam: Pupils Equal, Pupils Reactive Ears & Nose Ears & Nose Exam: Nasal Mucosa [place] Throat Throat Exam: Oral Mucosa [place] & Moist Neck Neck Exam: Neck Supple, Trachea Midline Pulmonary Resp Exam: Crackles Resp Remarks faint rales bibasilar Cardiology CV Exam: Regular, Normal Sinus Rhythm Gastrointestinal/Abdomen GI Exam: Soft, Non-Tender, Bowel Sounds Present, Non-Distended Musculoskeletal MS Exam: Joints Intact Integumentary Skin Exam: Warm, Dry Extremeties Extremities Exam: No Edema, Pedal Pulses Palpable Neurologic Neuro Exam: Alert, Awake, Oriented, Speech Clear, Moving All Extremities, No Focal Deficits Psychiatric Psych Exam: Appropriate Responses VTE Prophylaxis VTE Prophylaxis Device: SCDs Assessment/Plan Problem List: (1) Generalized weakness (2) Falls (3) Hypertension, uncontrolled (4) Bipolar disorder (5) Seizure disorder (6) Hx of deep venous thrombosis (7) UTI (urinary tract infection) Assessment/Plan Neurology consultation pending imaging studies reviewed, no acute findings CUS results, no significant stenosis EEG pending Echo pending PT eval and tx BP initially uncontrolled, now improved, will add Vasotec PRN. Pt. used to take meds before but were dc by PCP as BP was low. seizure precautions will check orthos q shift continue home meds continue abx, follow urine cultures further recommendations per neurology CM for HHC/PT D/W RN D/W Dr. Rios D/W pt This patient was seen by myself and Dr. Rios, this note is written on his behalf. Problem Qualifiers (1) Falls: Qualified Code: W19.XXXA - Falls, initial encounter (2) UTI (urinary tract infection): Qualified Code: N30.01 - Acute cystitis with hematuria Macie Orozco Oct 15, 2016 09:33
--- NOTE | 2016-10-15 09:53 | HHI.FF ---
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 may need more supervision, JAMA or ILF, neighbors report frequent falls, pt. has limited social support, not much family support ) Order: To Provide: Long range planning, Community services I have seen patient Emilia Newell on 10/15/16. My clinical findings support the need for the requested home health care services because: Deconditioned w/ increased weakness I certify that my clinical findings support that this patient is homebound because: Impaired cognitive ability/safety Need for psychosocial assistance Macie Orozco Oct 15, 2016 09:53
--- NOTE | 2016-10-15 11:02 | MB ---
cc: CATHRYN LOFTON DATE OF CONSULTATION: 10/15/2016 REASON FOR CONSULTATION Rule out TIA. HISTORY OF PRESENT ILLNESS Ms. Newell is a very nice 66-year-old woman with a recent urinary tract infection. States she was placed on some type of antibiotic last week and after taking that for about 3 days began to experience dizziness, lightheadedness and at times a sense of falling with no loss of consciousness. She had no weakness or numbness. She came to the ER on 10/11/2016 for dizziness evaluation which was occurring for several weeks. CT of the brain showed no acute change. She was placed on antibiotics at that time according to the note for UTI, but persisted with dizziness and generalized weakness. She feels better at this time, saying that she feels basically back to normal but she does normally walk with a walker. PAST MEDICAL HISTORY 1. History of seizure. 2. Hypertension. 3. UTI. 4. Depression. 5. Anxiety. 6. Bipolar. 7. GERD. 8. Sciatica. 9. Menopause. 10. DVT left leg. 11. Appendectomy. 12. Hysterectomy. 13. Tubal ligation. 14. Tonsillectomy. MEDICATIONS Current medications are: 1. Ciprofloxacin. 2. Clonidine. 3. Zoloft. 4. Famotidine. 5. Gabapentin. 6. Seroquel. 7. Xanax. 8. Dilantin 100 mg t.i.d. 9. Tylenol. NEUROLOGIC EXAMINATION VITAL SIGNS: Blood pressure 131/62, pulse 83, respirations 18, temperature 98 degrees. Higher cortical function, she is alert, oriented x3. Speech is normal. Cranial nerves are intact. There is no nystagmus. On motor exam she does have 5/5 strength of all groups. There is no drift. Fine motor skills are normal. Cerebellar testing is normal with no sign of dysmetria. IMAGING DATA MRI of the brain is normal for age with atrophy and chronic change. No acute change present. Carotid ultrasound: No significant stenosis is identified. CT of the brain: No acute change is identified. Echocardiogram is pending. LABORATORY DATA White count 11,000, hemoglobin 13, hematocrit 38.9%, platelet count 231,000. Sodium 140, potassium 4.3, chloride 105, CO2 27.8, BUN 15, creatinine 0.74, GFR 78, glucose 88, calcium 8.3. Urinalysis: pH 6.5, , specific gravity 1.024, protein 30, 73 wbc's are seen, 62 rbc's. IMPRESSION Vertigo. I suspect this may be related to UTI, possibly due to the antibiotic or possible peripheral vertigo such as benign positional vertigo. I do not find any evidence to suggest TIA or stroke at the present time. RECOMMENDATION Follow-up on the echocardiogram. No further neurologic evaluation is indicated presently. MD SIMÓN Nichole/SAAD /10:33 AM /10:43 AM
[2016-10-15 11:48] VITALS: BP_SYST 132; BP_SYST 139; BP_DIAS 66; BP_DIAS 67; PULSE 82; RESP 18; TEMP 96.9; O2SAT 98
--- NOTE | 2016-10-15 14:33 | EKG ---
Date Performed: 10/14/2016 Time Performed: 11:04:40 PTAGE: 66 years EKG: Sinus rhythm NORMAL ECG PREVIOUS TRACING : 10/11/2016 10.49 Since previous tracing, no significant change noted DOCTOR: Loyda Hull Interpretating Date/Time 10/15/2016 14:24:17
--- NOTE | 2016-10-15 15:10 | MG ---
cc: CATHRYN LOFTON M.D. Lab No: Date: 10/15/2016 Age: Sex: F Race: TECHNIQUE 17 channel EEG. DESCRIPTION The background rhythm reveals symmetrical alpha rhythm frequency 8 Hz amplitude is 20-40 microvolts. There is the expected anterior decremental response. No lateralizing features identified and no epileptic features are seen. Photic stimulation is normal INTERPRETATION Normal electroencephalogram. MD SIMÓN Nichole/david /3:06 PM /3:08 PM
--- NOTE | 2016-10-15 15:36 | EC ---
Study Study Date:10/15/2016 STUDY CONCLUSIONS SUMMARY - Procedure narrative: Transthoracic echocardiography. Image quality was fair. The study was technically limited due to poor acoustic window availability. Scanning was performed from the parasternal, apical, and subcostal acoustic windows. - Left ventricle: The cavity size was normal. Wall thickness was normal. Systolic function was normal. The estimated ejection fraction was in the range of 60% to 65%. Although no diagnostic regional wall motion abnormality was identified, this possibility cannot be completely excluded on the basis of this study. If LV function is below 40, please consider prescribing an ACEI or ARB or document rationale for non-use. PROCEDURE DATA STUDY STATUS: Elective. Procedure: Transthoracic echocardiography. Image quality was fair. The study was technically limited due to poor acoustic window availability. Scanning was performed from the parasternal, apical, and subcostal acoustic windows. Study completion: The patient tolerated the procedure well. Transthoracic echocardiography. M-mode, complete 2D, complete spectral Doppler, and color Doppler. Height: Height: 64in. Weight: Weight: 175.6lb. Body mass index: BMI: 30.2kg/m^2. Body surface area: BSA: 1.85m^2. Patient status: Inpatient. CARDIAC ANATOMY LEFT VENTRICLE: The cavity size was normal. Wall thickness was normal. Systolic function was normal. The estimated ejection fraction was in the range of 60% to 65%. Although no diagnostic regional wall motion abnormality was identified, this possibility cannot be completely excluded on the basis of this study. AORTIC VALVE: [place]. Doppler: There was no stenosis. No significant regurgitation. Valve area: 2.77cm^2 (Vmax). Indexed valve area: 1.5cm^2/m^2 (Vmax). Peak gradient: 11mm Hg (S). MITRAL VALVE: The valve appears to be grossly normal. Doppler: There was no evidence for stenosis. Trace regurgitation. LEFT ATRIUM: The atrium was at the upper limits of normal in size. ATRIAL SEPTUM: Poorly visualized. PULMONIC VALVE: Not well visualized. Doppler: There was no evidence for stenosis. No significant regurgitation. TRICUSPID VALVE: The valve appears to be grossly normal. Doppler: There was no evidence for stenosis. Trace to mild regurgitation. Patient weight: 175.6lb _Ejection fraction:_ 65-75% _Fractional shortening:_ 32% up to 5Kg 5-11.5Kg 11.6-22.9Kg 23-45Kg 45-57Kg Aortic Root 7-13 <17 13-22 17-27 17-27 LA diam 6-13 <23 24-38 33-47 37-40 RVID 10-17 7-15 7-15 7-18 8-17 LVIDd 12-22 <32 24-38 33-47 37-40 LVPW 2-4 3-6 5-7 6-8 7-8 IVS 2-4 3-6 5-7 6-8 7-8 BASIC MEASUREMENTS ADULT NORMAL Left ventricle LV internal dimension, ED, chordal 44.2 mm 43-52 level, PLAX LV internal dimension, ES, chordal 32.1 mm 23-38 level, PLAX Fractional shortening, chordal level, *27 % >29 PLAX LV posterior wall thickness, ED 7.42 mm IVS/LVPW ratio, ED 0.96 <1.3 Ventricular septum Septal thickness, ED 7.1 mm Aortic valve Leaflet separation 18 mm 15-26 BASIC MEASUREMENTS ADULT NORMAL Aortic valve Leaflet separation 18 mm 15-26 Aorta Root diameter, ED 26 mm 20-37 Left atrium Anterior-posterior dimension, ES 39 mm 19-40 Anterior-posterior dimension index, ES 2.11 cm/m^2 <2.2 LA/aortic root ratio 1.5 DOPPLER MEASUREMENTS ADULT NORMAL Main pulmonary artery Pressure, S 20 mm Hg =30 Aortic valve Peak velocity, S 168 cm/s Peak gradient, S 11 mm Hg Valve area, Vmax 2.77 cm^2 Valve area index, Vmax 1.5 cm^2/m^2 Mitral valve Peak E-wave velocity 58.2 cm/s Peak A-wave velocity 70.1 cm/s Deceleration time 204 ms 150-230 Peak E/A ratio 0.8 Maximal regurgitant velocity 455 cm/s Tricuspid valve Regurgitant peak velocity 194 cm/s Peak RV-RA gradient, S 15 mm Hg Maximal regurgitant velocity 194 cm/s Systemic veins Estimated CVP 10 mm Hg Right ventricle RV pressure, S 25 mm Hg <30 Pulmonic valve Peak velocity, S 110 cm/s LEGEND: Mean values are shown as u=mean value. Asterisk (*) diaz values outside specified normal range. Prepared and signed by Stevie Villatoro [id number]
--- NOTE | 2016-10-15 15:53 | HHI.DCPOC ---
Discharge Care Plan Diagnosis: (1) Falls (2) Generalized weakness (3) Bipolar disorder (4) Seizure disorder (5) Hx of deep venous thrombosis (6) Anxiety about health (7) UTI (urinary tract infection) Your Health Problems Are: Anxiety Goals to Promote Your Health * To prevent worsening of your condition and complications * To maintain your health at the optimal level Directions to Meet Your Goals Take your medications as prescribed Follow your dietary instruction Follow activity as directed Keep your appointments as scheduled Take your immunizations and boosters as scheduled If your symptoms worsen call your PCP, if no PCP go to Urgent Care Center or Emergency Room Smoking is Dangerous to Your Health. Avoid second hand smoke Call the 24-hour hour crisis hotline for domestic abuse at Macie Orozco Oct 15, 2016 15:53
[2016-10-15] MEDS ORDERED: CIPR250T2 PO (15:55)
[2016-10-15] MEDS: CIPROFLOXACIN 200 MG PREMIX 100 ML IV SCH (16:02)
[2016-10-15 16:20] VITALS: BP 152/82; PULSE 77; RESP 20; TEMP 97.9; O2SAT 96
[2016-10-15 19:47] VITALS: BP 171/75; PULSE 84; RESP 21; TEMP 98; O2SAT 98
[2016-10-15] MEDS: ONDANSETRON HCL 4 MG/2 ML VIAL IVP PRN (20:27)
[2016-10-16] VITALS (9 sets, daily range): BP systolic 117–153; BP diastolic 56–90; PULSE 56–93; RESP 18–20; TEMP 97.5–98.8; O2SAT 96–99
[2016-10-16] MEDS: CALCIUM/VITAMIN D 250 MG/125 U TAB PO SCH ×2 (08:25→20:40)
[2016-10-16] MEDS: SODIUM CHLORIDE 0.9% FLUSH 5 ML FLUSH FLUSH SCH ×2 (08:26→20:39)
[2016-10-16] MEDS: QUEtiapine FUMARATE 100 MG TAB PO SCH ×2 (08:26→20:40)
[2016-10-16] MEDS: PHENYTOIN SODIUM 100 MG CAP PO SCH ×3 (08:26→16:41)
[2016-10-16] MEDS: GABAPENTIN 100 MG CAP PO SCH ×2 (08:26→20:39)
[2016-10-16] MEDS: SERTRALINE HCL 100 MG TAB PO SCH (08:26)
--- NOTE | 2016-10-16 09:47 | HHI.PR ---
Subjective Interval History sitting up on bed taking her breakfast no dizziness when standing, or head movement was out of bed yesterday and did walk some yesterday BP better no cp no sob afebrile wants to go home Review of system for 10 point system otherwise unremarkable Vitals/Results Intake & Output 10/15/16 10/15/16 10/16/16 15:00 23:00 07:00 Intake Total 620 ml Balance 620 ml Intake Oral 620 ml # Voids 4 # Bowel Movements 0 Vital Signs Vital Signs Date Time Temp Pulse Resp B/P Pulse Ox O2 Delivery O2 Flow Rate FiO2 10/16/16 08:00 98.8 86 19 140/65 96 10/16/16 03:37 98.0 74 18 147/87 98 10/16/16 03:36 98.2 87 18 141/79 97 10/16/16 03:35 98.0 74 18 131/67 97 10/16/16 00:58 98.8 88 18 147/78 97 10/15/16 19:47 98.0 84 21 171/75 98 10/15/16 16:20 97.9 77 20 152/82 96 10/15/16 11:48 96.9 82 18 132/66 98 136/74 139/67 CBC/BMP: 10/15/16 0613 10/15/16 0613 Physical Exam General General Appearance: Well Developed, Well Nourished, No Acute Distress, Comfortable Eyes Eye Exam: Pupils Equal, Pupils Reactive Ears & Nose Ears & Nose Exam: Nasal Mucosa [place] Throat Throat Exam: Oral Mucosa [place] & Moist Neck Neck Exam: Neck Supple, Trachea Midline Pulmonary Resp Exam: Crackles Cardiology CV Exam: Regular, Normal Sinus Rhythm Gastrointestinal/Abdomen GI Exam: Soft, Non-Tender, Bowel Sounds Present, Non-Distended Musculoskeletal MS Exam: Joints Intact Integumentary Skin Exam: Warm, Dry Extremeties Extremities Exam: No Edema, Pedal Pulses Palpable Neurologic Neuro Exam: Alert, Awake, Oriented, Speech Clear, Moving All Extremities, No Focal Deficits Psychiatric Psych Exam: Appropriate Responses VTE Prophylaxis VTE Prophylaxis Device: SCDs Assessment/Plan Problem List: (1) Generalized weakness (2) Falls (3) Hypertension, uncontrolled (4) Bipolar disorder (5) Seizure disorder (6) Hx of deep venous thrombosis (7) UTI (urinary tract infection) Assessment/Plan Neurology consultation appreciated imaging studies reviewed, no acute findings CUS results, no significant stenosis EEG report reviewed Echo report reviewed PT eval and tx BP initially uncontrolled, now improved. Pt. used to take meds before but were dc by PCP as BP was low. seizure precautions continue home meds continue abx, follow urine cultures -24 hours is culture negative UTI Appreciated physical therapist input Plan to discharge her home today to be followed by primary care doctor as outpatient D/W RN D/W pt Problem Qualifiers (1) Falls: Qualified Code: W19.XXXA - Falls, initial encounter (2) UTI (urinary tract infection): Qualified Code: N30.01 - Acute cystitis with hematuria Lucia Rios MD Oct 16, 2016 09:47
[2016-10-16] MEDS: MECLIZINE HCL 25 MG TAB PO SCH ×3 (10:00→23:54)
[2016-10-16] MEDS: ONDANSETRON HCL 4 MG/2 ML VIAL IVP PRN ×2 (15:56→20:39)
[2016-10-16] MEDS: CIPROFLOXACIN 200 MG PREMIX 100 ML IV SCH (16:41)
[2016-10-16] MEDS: ALPRAZolam 0.25 MG TAB PO PRN ×2 (20:40→23:53)
[2016-10-16] MEDS: PEPCID PO SCH (20:40)
[2016-10-16] MEDS: ACETAMINOPHEN 325 MG TAB PO PRN (23:25)
[2016-10-17 03:59] VITALS: BP 128/58; PULSE 82; RESP 18; TEMP 98.2; O2SAT 96
[2016-10-17] MEDS: ALPRAZolam 0.25 MG TAB PO PRN ×2 (05:23→09:29)
[2016-10-17] MEDS: PEPCID PO SCH (07:46)
[2016-10-17] MEDS: PHENYTOIN SODIUM 100 MG CAP PO SCH ×2 (07:46→12:31)
[2016-10-17] MEDS: GABAPENTIN 100 MG CAP PO SCH (07:46)
[2016-10-17] MEDS: CALCIUM/VITAMIN D 250 MG/125 U TAB PO SCH (07:46)
[2016-10-17] MEDS: SODIUM CHLORIDE 0.9% FLUSH 5 ML FLUSH FLUSH SCH (07:47)
[2016-10-17] MEDS: QUEtiapine FUMARATE 100 MG TAB PO SCH (07:47)
[2016-10-17] MEDS: SERTRALINE HCL 100 MG TAB PO SCH (07:47)
[2016-10-17] MEDS: MECLIZINE HCL 25 MG TAB PO SCH (07:49)
[2016-10-17 08:33] VITALS: BP_SYST 146; BP_SYST 162; BP_SYST 166; BP_DIAS 63; BP_DIAS 72; BP_DIAS 75; PULSE 80; RESP 18; TEMP 98.5; O2SAT 97
--- NOTE | 2016-10-17 09:25 | HHI.PR ---
Subjective Interval History sitting up on bed taking her breakfast no dizziness when standing, or head movement was out of bed yesterday and did walk some yesterday BP better no dizziness on standing no cp no sob afebrile No abdominal pain No nausea vomiting No genitourinary symptoms Review of system for 12 point system otherwise unremarkable Vitals/Results Vital Signs Vital Signs Date Time Temp Pulse Resp B/P Pulse Ox O2 Delivery O2 Flow Rate FiO2 10/17/16 08:33 98.5 80 18 146/63 97 166/75 162/72 10/17/16 03:59 98.2 82 18 128/58 96 10/16/16 23:51 97.8 93 20 146/90 97 10/16/16 19:49 97.5 56 20 150/83 97 10/16/16 16:08 97.8 77 18 117/56 99 10/16/16 12:00 98.5 77 18 153/70 99 CBC/BMP: 10/15/16 0613 10/15/16 0613 Physical Exam General General Appearance: Well Developed, Well Nourished, No Acute Distress, Comfortable Eyes Eye Exam: Pupils Equal, Pupils Reactive Ears & Nose Ears & Nose Exam: Nasal Mucosa [place] Throat Throat Exam: Oral Mucosa [place] & Moist Neck Neck Exam: Neck Supple, Trachea Midline Pulmonary Resp Exam: Crackles Cardiology CV Exam: Regular, Normal Sinus Rhythm Gastrointestinal/Abdomen GI Exam: Soft, Non-Tender, Bowel Sounds Present, Non-Distended Musculoskeletal MS Exam: Joints Intact Integumentary Skin Exam: Warm, Dry Extremeties Extremities Exam: No Edema, Pedal Pulses Palpable Neurologic Neuro Exam: Alert, Awake, Oriented, Speech Clear, Moving All Extremities, No Focal Deficits Psychiatric Psych Exam: Appropriate Responses VTE Prophylaxis VTE Prophylaxis Device: SCDs Assessment/Plan Problem List: (1) Generalized weakness (2) Falls (3) Hypertension, uncontrolled (4) Bipolar disorder (5) Seizure disorder (6) Hx of deep venous thrombosis (7) UTI (urinary tract infection) Assessment/Plan Had dizziness yesterday now better with Antivert will continue Neurology consultation appreciated imaging studies reviewed, no acute findings CUS results, no significant stenosis EEG report reviewed Echo report reviewed PT eval and tx BP initially uncontrolled, now improved. Pt. used to take meds before but were dc by PCP as BP was low. seizure precautions continue home meds abx, follow urine cultures -24 hours is culture negative UTI Appreciated physical therapist input Plan to discharge her home today as overall is stable and in good condition. To be followed by primary care doctor as outpatient D/W RN D/W pt Problem Qualifiers (1) Falls: Qualified Code: W19.XXXA - Falls, initial encounter (2) UTI (urinary tract infection): Qualified Code: N30.01 - Acute cystitis with hematuria Lucia Rios MD Oct 17, 2016 09:25
[2016-10-17] MEDS ORDERED: MECL-62 PO (09:28)
[2016-10-17] MEDS: ACETAMINOPHEN 325 MG TAB PO PRN (12:32)
--- NOTE | 2016-10-18 15:08 | HHI.DS ---
Discharge Summary Admission Date Oct 14, 2016 at 15:51 Discharge Date: Oct 17, 2016 Admitting Diagnosis presyncope, UTI with failed out patient treatment, hypertensive urge (1) Dizziness (2) Generalized weakness (3) Hypertension, uncontrolled (4) Seizure disorder (5) Bipolar disorder (6) Hx of deep venous thrombosis (7) Falls (8) Depression CBC/BMP: 10/15/16 0613 10/15/16 0613 Imaging Last Impressions Chest X-Ray 10/14/16 1048 Signed Impressions: Service Date/Time: October 10:49 - CONCLUSION: No acute disease.. Umesh Onofre MD Head CT 10/14/16 0000 Signed Impressions: Service Date/Time: October 14:05 - CONCLUSION: 1. No acute intracranial abnormalities. Cortical volume loss. Douglas Luna MD Carotid Artery Ultrasound 10/14/16 0000 Signed Impressions: Service Date/Time: October 17:02 - CONCLUSION: Bilateral carotid disease with hemodynamic profile characteristic of less than 50%% stenosis. Ramsey Beebe MD Brain MRI 10/14/16 0000 Signed Impressions: Service Date/Time: October 19:52 - CONCLUSION: No acute intracranial abnormality. Atrophy and minimal chronic white matter changes are noted. Umesh Gallegos MD Hospital Course 66 year old [place] female presents to the ER today with increased episodes of dizziness. She also has symptoms of dysuria. Patient was seen in the emergency room back on 10/11/16 for evaluation of dizziness that has persisted over the past few weeks, a CT of the brain was done at that time which showed no acute intracranial abnormality. Patient was discharged home with medication for a UTI. Patient states that she took antibiotics for 2 days but continued with dizzy spells which seemed to worsen and become more frequent. She was positive for generalized weakness, but denied any chest pain. Patient denied any fever, no problems with her appetite, no headache. She denied any shortness of breath at this time, but does state that she does have some shortness of breath with activity. When she sits down to rest this shortness of breath goes away. Patient states that she cannot stand for extended periods of time without having the sensation of falling forward. Over the past few days she has had to sit down to do her ADLs, and did not feel like her dizziness is getting better. PT. was admitted for failure of outpatient therapy , CT of head repeated was negative. Pt. was admitted for: (1) Generalized weakness (2) Falls (3) Hypertension, uncontrolled (4) Bipolar disorder (5) Seizure disorder (6) Hx of deep venous thrombosis (7) UTI (urinary tract infection) During course of the hospitalization, the following took place: Pt. put on IVF, neuro checks done Neurology consulted, work up negative imaging studies reviewed, no acute findings CUS results, no significant stenosis EEG report reviewed Echo report reviewed PT ordered Continued on antibiotics Orthostatics ordered, negative. On day 2, she had dizziness, dc was held and Antivert was ordered. Pt. was better the next day CM consulted for dc planning PT eval and tx BP initially uncontrolled, now improved. Pt. used to take meds before but were dc by PCP as BP was low. seizure precautions continue home meds abx, follow urine cultures -24 hours is culture negative UTI Appreciated physical therapist input Planned to discharge her home today as overall is stable and in good condition. To be followed by primary care doctor as outpatient Pt. afebrile, ambulating ok with walker. no dizziness Pt. was discharged Pt Condition on Discharge: Good Discharge Disposition: Discharge Home Discharge Instructions DIET: Follow Instructions for: Heart Healthy Diet Activities you can perform: Weight Bearing as Gomez Follow up Referrals: PCP Follow-up New Medications: Ciprofloxacin (Ciprofloxacin) 250 Mg Tab 250 MG PO BID Infection #6 Ref 0 TAB Meclizine (Meclizine) 25 Mg Tab 25 MG PO TID PRN VERTIGO #30 Ref 0 TAB Continued Medications: Alprazolam (Xanax) 0.25 Mg Tab 0.25 MG PO Q4H PRN ANXIETY Ref 0 TAB Calcium Carbonate-Cholecalciferol (Caltrate 600+D) 600-800 Mg-Unit Tab 1 TAB PO BID Calcium Supplement Ref 0 TAB Famotidine (Famotidine) 40 Mg Tab 40 MG PO BID #60 Ref 0 TAB Gabapentin (Gabapentin) 100 Mg Cap 100 MG PO BID #60 Ref 0 CAP Pantoprazole (Protonix) 20 Mg Tab 20 MG PO DAILY Reflux #30 Ref 0 TAB Phenytoin Extended (Phenytoin Extended) 100 Mg Cap 100 MG PO TID Control Seizures #90 Ref 0 CAP Quetiapine (Seroquel) 100 Mg Tab 100 MG PO BID #60 Ref 0 TAB Sertraline (Zoloft) 100 Mg Tab 100 MG PO DAILY #30 Ref 0 TAB Discontinued Medications: Cephalexin (Keflex) 500 Mg Cap 500 MG PO Q12H Infection Days 7 Ref 0 Macie Keller Oct 18, 2016 15:08
== END 2016-10-17 13:07 | disposition home or self-care (01) | DRG 149 ==
LOC: NEPE 10:46 → NEDA 15:51 → NEDH 21:22 → NEPFCDU 23:01
PROVIDERS: ADMIT Specialist; ATTEND Specialist
DX: R42 Dizziness and giddiness (principal); N30.01 Acute cystitis with hematuria; I10 Essential (primary) hypertension; F31.9 Bipolar disorder, unspecified; R53.1 Weakness; K21.9 Gastro-esophageal reflux disease without esophagitis; R29.6 Repeated falls; G40.909 Epilepsy, unspecified, not intractable, without status epilepticus; F41.9 Anxiety disorder, unspecified; B96.20 Unspecified Escherichia coli [E. coli] as the cause of diseases classified elsewhere; Z87.891 Personal history of nicotine dependence; Z86.718 Personal history of other venous thrombosis and embolism; Z91.81 History of falling
CPT/HCPCS: 70450; 70553; 71010; 76937; 80048; 80053; 81001; 82550; 83605; 83880; 84484; 85025; 85379; 87077; 87086; 87186; 93005; 93306; 93880; 95819; 96374; A9579; J0696; J0744; J2405; J7030

== ENCOUNTER 2017-03-25 17:14 | Inpatient (IN) | payer MEDICARE ==
[~2017-03-25] VITALS: Ht 162.6 cm; Wt 82.7 kg
[~2017-03-25 17:14] MED LIST changes: -CEPH-460 PO; +CIPR250T2 PO; -LYRI100C PO; +MECL-62 PO
[2017-03-25 17:16] VITALS: BP 192/89; PULSE 90; RESP 16; TEMP 98; O2SAT 99
--- NOTE | 2017-03-25 21:00 | PD ---
HPI Chief Complaint: Fall Time Seen by Provider: 20:58 Travel History International Travel<30 days: No Contact w/Intl Traveler<30days: No Traveled to known affect area: No History of Present Illness HPI Patient comes in for evaluation complaining of increasing falls over the past 3 days. Patient states she seems to lose her balance and fall. Patient denies any chest pain pre-or Post-fall. Denies hitting her head or loss of consciousness. Patient denies any pain anywhere. Patient states she's had similar happen to in the past which was secondary to a urinary tract infections. Patient states she normally ambulates with a walker however still has had falls. Patient denies any fevers, nausea, vomiting, numbness tingling anywhere, new back pain, loss or change in bowel or bladder, chest pain, shortness of breath, headache, or neck pain. Patient primary care doctor is Dr. Israel. [facility] Past Medical History Arthritis: Yes Asthma: No Autoimmune Disease: No Blood Disorders: No Anxiety: Yes Depression: Yes Heart Rhythm Problems: No Cancer: No Cardiovascular Problems: No High Cholesterol: No Chest Pain: No Congestive Heart Failure: No COPD: No Cerebrovascular Accident: No Diabetes: No Diminished Hearing: No Deep Vein Thrombosis: Yes Endocrine: No Gastrointestinal Disorders: Yes GERD: Yes Genitourinary: Yes Headaches: Yes Hypertension: Yes Immune Disorder: No Kidney Stones: No Musculoskeletal: Yes (SCIATICA) Neurologic: Yes Psychiatric: Yes Reproductive: No Respiratory: No Immunizations Current: Yes Migraines: No Myocardial Infarction: No Seizures: Yes Sleep Apnea: No Thyroid Disease: No Ulcer: No Menopausal: Yes : 3 Para: 3 Tubal Ligation: Yes Past Surgical History Appendectomy: Yes Gynecologic Surgery: Yes (HYSTERECTOMY, TUBAL LIGATION) Hysterectomy: Yes Pacemaker: No Tonsillectomy: Yes Social History Alcohol Use: No Tobacco Use: No (QUIT IN 2003) Substance Use: No Allergies-Medications (Allergen,Severity, Reaction): Coded Allergies: No Known Allergies (Verified , 03/25/17) Reported Meds & Prescriptions Reported Meds & Active Scripts Active Reported Calcium 600 with Vitamin D (Calcium Carbonate-Cholecalciferol) 600-400 mg-Unit Tab 1 Tab PO DAILY Zoloft (Sertraline HCl) 100 Mg Tab 100 Mg PO DAILY Seroquel (Quetiapine Fumarate) 100 Mg Tab 100 Mg PO BID Phenytoin Extended 100 Mg Cap 100 Mg PO TID Gabapentin 100 Mg Cap 100 Mg PO BID Famotidine 40 Mg Tab 40 Mg PO BID Xanax (Alprazolam) 0.25 Mg Tab 0.25 Mg PO Q4H PRN Review of Systems Except as stated in HPI: all other systems reviewed are Neg Physical Exam Narrative GENERAL: Well-developed, overly nourished, in no acute distress, and non-ill appearing. SKIN: Focused skin assessment warm and dry. HEAD: Atraumatic. Normocephalic. EYES: Pupils unequal and round, which patient reports is normal for patient. EOMI. No scleral icterus. No injection or drainage. ENT: No nasal bleeding or discharge. Mucous membranes pink and moist. Tympanic membranes pearly abebe bilaterally. Posterior pharynx erythematous without exudate. Uvula is midline. NECK: Trachea midline. Supple. No nuclear rigidity. CARDIOVASCULAR: Regular rate and rhythm. No murmur appreciated. RESPIRATORY: No accessory muscle use. No respiratory distress. Clear to auscultation. Breath sounds equal bilaterally. GASTROINTESTINAL: Abdomen soft, non-tender, nondistended. Hepatic and splenic margins not palpable. Normal bowel sounds 4. No pulsatile mass. MUSCULOSKELETAL: No obvious deformities. No clubbing. No cyanosis. No edema. Full range of motion. Shoulder:FROM equal BL with passive flexion, extension, Abduction, Adduction, internal/external rotation, and pronation/supination. Sensation equal BL deltoid muscles. Pulses equal BL distal to injury. Capillary refill less than 2 seconds distal to injury and equal BL. FROM distal to injury and equal BL. Strength distal to injury equal BL. NV intact distal to injury equal BL. Flexion and extension of thumb equal BL. Equal strength and movement with abduction/adductions of BL fingers. Needle Bar Molder strength equal BL. Plantar and dorsiflexion 5 out of 5 and equal bilaterally. Sensation intact over first web space and equal bilateral lower extremities NEUROLOGICAL: Awake and alert. No obvious cranial nerve deficits. Motor grossly within normal limits. Normal speech. PSYCHIATRIC: Appropriate mood and affect; insight and judgment normal. Data Data Last Documented VS Vital Signs Date Time Temp Pulse Resp B/P Pulse Ox O2 Delivery O2 Flow Rate FiO2 03/25/17 22:00 90 18 181/82 100 Room Air 03/25/17 17:16 98.0 Orders Electrocardiogram (03/25/17 20:35) Basic Metabolic Panel (Bmp) (03/25/17 20:35) Complete Blood Count With Diff (03/25/17 20:35) Urinalysis - C+S If Indicated (03/25/17 20:35) Phenytoin (Dilantin) (03/25/17 21:00) Ammonia (03/25/17 21:00) Urine Culture (03/25/17 21:25) Ceftriaxone Inj (Rocephin Inj) (03/25/17 22:30) Cephalexin (Keflex) (03/25/17 22:45) Labs Laboratory Tests Test 03/25/17 21:25 White Blood Count 13.7 TH/MM3 Red Blood Count 4.60 MIL/MM3 Hemoglobin 13.9 GM/DL Hematocrit 41.8 % Mean Corpuscular Volume 90.9 FL Mean Corpuscular Hemoglobin 30.2 PG Mean Corpuscular Hemoglobin 33.2 % Concent Red Cell Distribution Width 14.0 % Platelet Count 350 TH/MM3 Mean Platelet Volume 9.0 FL Neutrophils (%) (Auto) 56.4 % Lymphocytes (%) (Auto) 31.1 % Monocytes (%) (Auto) 9.0 % Eosinophils (%) (Auto) 2.9 % Basophils (%) (Auto) 0.6 % Neutrophils # (Auto) 7.7 TH/MM3 Lymphocytes # (Auto) 4.3 TH/MM3 Monocytes # (Auto) 1.2 TH/MM3 Eosinophils # (Auto) 0.4 TH/MM3 Basophils # (Auto) 0.1 TH/MM3 CBC Comment AUTO DIFF Urine Color LIGHT-YELLOW Urine Turbidity HAZY Urine pH 7.5 Urine Specific [place] 1.011 Urine Protein TRACE mg/dL Urine Glucose (UA) NEG mg/dL Urine Ketones NEG mg/dL Urine Occult Blood TRACE Urine Nitrite POS Urine Bilirubin NEG Urine Urobilinogen LESS THAN 2.0 MG/DL Urine Leukocyte Esterase LARGE Urine RBC 2 /hpf Urine WBC 133 /hpf Urine WBC Clumps FEW Urine Squamous Epithelial 3 /hpf Cells Urine Transitional Epithelial <1 /hpf Cells Urine Bacteria MOD /hpf Urine Yeast (Budding) MOD Microscopic Urinalysis Comment CULTURE INDICATED Sodium Level 138 MEQ/L Potassium Level 4.1 MEQ/L Chloride Level 102 MEQ/L Carbon Dioxide Level 28.9 MEQ/L Anion Gap 7 MEQ/L Blood Urea Nitrogen 12 MG/DL Creatinine 0.89 MG/DL Estimat Glomerular Filtration 63 ML/MIN Rate Random Glucose 102 MG/DL Calcium Level 8.4 MG/DL Ammonia 39 MCMOL/L Phenytoin (Dilantin) Level 41.1 MCG/ML MDM Medical Decision Making Medical Screen Exam Complete: Yes Emergency Medical Condition: Yes Interpretation(s) EKG reviewed by Dr. Majano shows sinus rhythm with ventricular is 73. No STEMI. Differential Diagnosis UTI, electrolyte abnormality, Dilantin toxicity, arrhythmia, other Narrative Course Patient seen and examined. Initial laboratory studies were obtained and reviewed. Patient was given a dose of Keflex by mouth. EKG was obtained and reviewed. Discussed all findings and plan care of patient, who is agreeable for admission secondary to the Dilantin toxicity. All questions were answered. Discussed patient with Dr. Salomon, who is in agreement with plan of care and disposition. Diagnosis Primary Impression: Dilantin toxicity Qualified Code: T42.0X1A - Dilantin toxicity, accidental or unintentional, initial encounter Additional Impression: UTI (urinary tract infection) Qualified Code: N39.0 - Urinary tract infection without hematuria, site unspecified Admitting Information Admitting Physician Requests: Observation Condition: Stable Armen Kingsley Mar 25, 2017 20:59
[2017-03-25] MEDS ORDERED: CALC1TAB87 PO (21:01)
[2017-03-25 21:59] LABS: AUTOMATED NEUTROPHIL # 7.7 TH/MM3 (1.8-7.7); BASOPHIL # 0.1 TH/MM3 (0-0.2); BASOPHIL % 0.6 % (0.0-2.0); EOSINOPHIL # 0.4 TH/MM3 (0-0.4); EOSINOPHIL % 2.9 % (0.0-4.0); HEMATOCRIT 41.8 % (35.0-46.0); LYMPH % 31.1 % (9.0-44.0); LYMPHOCYTE # 4.3 TH/MM3 (1.0-4.8); MEAN CELL VOLUME 90.9 FL (80.0-100.0); MEAN CORPUSCULAR HEMOGLOBIN 30.2 PG (27.0-34.0); MEAN CORPUSCULAR HGB CONC 33.2 % (32.0-36.0); NEUT % 56.4 % (16.0-70.0); PLATELET COUNT 350 TH/MM3 (150-450); WHITE BLOOD COUNT 13.7 TH/MM3 (4.0-11.0)
[2017-03-25 22:00] VITALS: BP 181/82; PULSE 90; RESP 18; O2SAT 100
[2017-03-25 22:07] LABS: BACTERIA, URINE MOD /hpf; BLOOD, URINE TRACE (NEG); COMMENT (UR) CULTURE INDICATED; CULTURE IF INDICATED CULTURE INDICATED; GLUCOSE,URINE NEG (NEG); KETONE, URINE NEG (NEG); PH, URINE 7.5 (5.0-8.5); SQUAMOUS EPITHELIAL CELL URINE 3 /hpf (0-5); TRANSITIONAL EPI CELLS, URINE <1 /hpf; URINE COLOR LIGHT-YELLOW (YELLW/STRAW)
[2017-03-25 22:08] LABS: NITRITE,URINE POS (NEG)
[2017-03-25 22:17] LABS: HEMO FLAGS AUTO DIFF
[2017-03-25 22:28] LABS: BICARBONATE 28.9 MEQ/L (21.0-32.0); POTASSIUM 4.1 MEQ/L (3.5-5.1)
[2017-03-25] MEDS ORDERED: cefTRIAXone INJ 1,000 MG in SODIUM CHLORIDE 0.9% INJ 100 ML IV ONE (22:30)
[2017-03-25] MEDS ORDERED: CEPHALEXIN MONOHYDRATE 500 MG CAP PO ONE (22:45)
[2017-03-25] MEDS ORDERED: CEPH-460 PO (23:05)
--- NOTE | 2017-03-25 23:21 | PD ---
Data Data Last Documented VS Vital Signs Date Time Temp Pulse Resp B/P Pulse Ox O2 Delivery O2 Flow Rate FiO2 03/25/17 22:00 90 18 181/82 100 Room Air 03/25/17 17:16 98.0 Orders Electrocardiogram (03/25/17 20:35) Basic Metabolic Panel (Bmp) (03/25/17 20:35) Complete Blood Count With Diff (03/25/17 20:35) Urinalysis - C+S If Indicated (03/25/17 20:35) Phenytoin (Dilantin) (03/25/17 21:00) Ammonia (03/25/17 21:00) Urine Culture (03/25/17 21:25) Ceftriaxone Inj (Rocephin Inj) (03/25/17 22:30) Cephalexin (Keflex) (03/25/17 22:45) Labs Laboratory Tests Test 03/25/17 21:25 White Blood Count 13.7 TH/MM3 Red Blood Count 4.60 MIL/MM3 Hemoglobin 13.9 GM/DL Hematocrit 41.8 % Mean Corpuscular Volume 90.9 FL Mean Corpuscular Hemoglobin 30.2 PG Mean Corpuscular Hemoglobin 33.2 % Concent Red Cell Distribution Width 14.0 % Platelet Count 350 TH/MM3 Mean Platelet Volume 9.0 FL Neutrophils (%) (Auto) 56.4 % Lymphocytes (%) (Auto) 31.1 % Monocytes (%) (Auto) 9.0 % Eosinophils (%) (Auto) 2.9 % Basophils (%) (Auto) 0.6 % Neutrophils # (Auto) 7.7 TH/MM3 Lymphocytes # (Auto) 4.3 TH/MM3 Monocytes # (Auto) 1.2 TH/MM3 Eosinophils # (Auto) 0.4 TH/MM3 Basophils # (Auto) 0.1 TH/MM3 CBC Comment AUTO DIFF Urine Color LIGHT-YELLOW Urine Turbidity HAZY Urine pH 7.5 Urine Specific [place] 1.011 Urine Protein TRACE mg/dL Urine Glucose (UA) NEG mg/dL Urine Ketones NEG mg/dL Urine Occult Blood TRACE Urine Nitrite POS Urine Bilirubin NEG Urine Urobilinogen LESS THAN 2.0 MG/DL Urine Leukocyte Esterase LARGE Urine RBC 2 /hpf Urine WBC 133 /hpf Urine WBC Clumps FEW Urine Squamous Epithelial 3 /hpf Cells Urine Transitional Epithelial <1 /hpf Cells Urine Bacteria MOD /hpf Urine Yeast (Budding) MOD Microscopic Urinalysis Comment CULTURE INDICATED Sodium Level 138 MEQ/L Potassium Level 4.1 MEQ/L Chloride Level 102 MEQ/L Carbon Dioxide Level 28.9 MEQ/L Anion Gap 7 MEQ/L Blood Urea Nitrogen 12 MG/DL Creatinine 0.89 MG/DL Estimat Glomerular Filtration 63 ML/MIN Rate Random Glucose 102 MG/DL Calcium Level 8.4 MG/DL Ammonia 39 MCMOL/L Phenytoin (Dilantin) Level 41.1 MCG/ML MDM Supervised Visit with ANGELES: Yes Narrative Course I, Dr. Majano, have reviewed the advance practice practioner's documentation and am in agreement, met with the patient face to face, made the diagnosis, and the medical decision making was done by me. *My assessment and Findings: 67-year-old female on Dilantin here with complaint of increasing difficulty walking, gait problems and frequent falls. History frequent UTIs and states that this happens when she UTIs. Think that she has not sustained any significant trauma, only bruising. She does have some ecchymosis to the knees and elbows. Neurologically intact, though does have an unsteady gait. Differential includes UTI, elect to light abnormality, gait abnormality, Dilantin toxicity. Laboratory workup shows evidence of UTI. Patient's Dilantin levels also twice the upper limit of normal which is likely with contribute and her ataxia. Patient will be admitted for observation due to Dilantin toxicity. Diagnosis Primary Impression: Dilantin toxicity Qualified Code: T42.0X1A - Dilantin toxicity, accidental or unintentional, initial encounter Additional Impressions: UTI (urinary tract infection) Qualified Code: N39.0 - Urinary tract infection without hematuria, site unspecified Ataxia Admitting Information Admitting Physician Requests: Observation Additional Instruction: Follow-up with your primary care physician next week for evaluation. Take all medication as prescribed. Return to the emergency department if symptoms get worse. Condition: Stable Theresa Majano MD Mar 25, 2017 23:21
[2017-03-25 23:51] LABS: PLATELET ESTIMATE SMEAR NORMAL (NORMAL); PLATELET MORPHOLOGY NORMAL (NORMAL); SCAN/DIFF AUTO DIFF CONFIRMED
[2017-03-26] VITALS (10 sets, daily range): BP systolic 132–197; BP diastolic 67–89; PULSE 68–85; RESP 18–20; TEMP 96.8–98.2; O2SAT 96–98
[2017-03-26] MEDS ORDERED: NALOXONE HCL 0.4 MG/ML AMP IV PRN
[2017-03-26] MEDS ORDERED: SENNOSIDES 8.6 MG TAB PO PRN
[2017-03-26] MEDS ORDERED: LACTULOSE SYRUP 20 GM/30 ML CUP PO PRN
[2017-03-26] MEDS ORDERED: SODIUM CHLORIDE 0.9% FLUSH 10 ML FLUSH IV FLUSH PRN
[2017-03-26] MEDS ORDERED: BISACODYL 10 MG SUPP RECTAL PRN
[2017-03-26] MEDS ORDERED: MAGNESIUM HYDROXIDE SUSP 30 ML CUP PO PRN
[2017-03-26] MEDS ORDERED: ACETAMINOPHEN 500 MG CPLT PO ONE (01:00)
[2017-03-26] MEDS: SODIUM CHLOR 0.9% 1000 ML INJ 1,000 ML IV SCH ×3 (01:08→21:14)
--- NOTE | 2017-03-26 07:50 | HHI.HP ---
[facility] Primary [facility] Physician ALYSSA Guevara Admission Diagnosis dilantin toxicity, UTI Diagnoses: Chief Complaint: fall Travel History International Travel<30 Days: No Contact w/Intl Traveler <30 Da: No Traveled to Known Affected Are: No History of Present Illness This a pleasant 67-year-old white female with significant past medical history of seizure disorder on Dilantin, arthritis, sciatica, chronic unsteady gait, hypertension. Patient presented to the emergency room complaining of frequent falls over the last 2-3 days. Patient indicates that she has unsteady gait and occasionally uses a rolling walker. The last couple days she's noticed that every time she gets up she just collapses to the floor. She denies any preceding symptoms such as dizziness, lightheadedness, changes in vision, no chest pain, no shortness of breath. She denies hitting her head, no loss of consciousness. Every time she is able to stand up without any difficulty. She complains of some pain to her knees from the falls. She denies any recent fever , no chills. In the emergency room, patient was evaluated, laboratory workup was remarkable for Dilantin level of 41.1. Ammonia was 39. Urinalysis was positive for urinary tract infection. She denies any urinary symptoms. She indicates she called her primary care to get in to be seen however she couldn't get an appointment. Patient states she's been well-controlled with her seizures since been on Dilantin. She has lab work every 3 months. In the emergency room, she was started on empiric antibiotics. At the time she is examined, she has no complaints. Patient is admitted for further evaluation and treatment. Past Family Social History Past Medical History Seizures Hypertension UTI Depression Anxiety Bipolar disorder GERD Sciatica X Menopause DVT left leg Tobacco abuse Past Surgical History Appendectomy Hysterectomy Tubal ligation Tonsillectomy Reported Medications Reported Meds & Active Scripts Active Reported Calcium 600 with Vitamin D (Calcium Carbonate-Cholecalciferol) 600-400 mg-Unit Tab 1 Tab PO DAILY Zoloft (Sertraline HCl) 100 Mg Tab 100 Mg PO DAILY Seroquel (Quetiapine Fumarate) 100 Mg Tab 100 Mg PO BID Phenytoin Extended 100 Mg Cap 100 Mg PO TID Gabapentin 100 Mg Cap 100 Mg PO BID Famotidine 40 Mg Tab 40 Mg PO BID Xanax (Alprazolam) 0.25 Mg Tab 0.25 Mg PO Q4H PRN Allergies: Coded Allergies: No Known Allergies (Verified , 03/25/17) Active Ordered Medications Inpatient Medications Acetaminophen (Tylenol) 1,000 mg ONCE ONCE PO Last administered on 03/26/17 01:09; Start 03/26/17 at 01:00; Stop 03/26/17 at 01:01; Status DC Bisacodyl (Dulcolax Supp) 10 mg DAILY PRN RECTAL SEVERE CONSITIPATION; Start at 00:00 Ceftriaxone Sodium/Sodium Chloride (Rocephin Inj/NS Inj) 100 ml @ 200 mls/hr Q24H IV ; Start 03/26/17 at 12:00 Cephalexin Monohydrate 500 mg 500 mg ONCE ONCE PO Last administered on 22:51; Start 03/25/17 at 22:45; Stop 03/25/17 at 22:46; Status DC Famotidine (Pepcid) 40 mg BID PO ; Start 03/26/17 at 09:00 Gabapentin (Neurontin) 100 mg BID PO ; Start 03/26/17 at 09:00 Lactulose 30 ml 30 ml DAILY PRN PO SEVERE CONSITIPATION; Start 03/26/17 at 00: 00 Magnesium Hydroxide (Milk Of Magnesia Liq) 30 ml Q12H PRN PO MILD - MODERATE CONSTIPATION; Start 03/26/17 at 00:00 Naloxone HCl (Narcan Inj) 0.4 mg UNSCH PRN IV SEE LABEL COMMENTS; Start at 00:00 Senna/Docusate Sodium (Lizz-Colace) 1 tab BID PO ; Start 03/26/17 at 09:00 Sennosides (Senokot) 17.2 mg Q12H PRN PO MODERATE - SEVERE CONSTIPATION; Start 03/26/17 at 00:00 Sodium Chloride (NS 1000 ml Inj) 1,000 ml @ 100 mls/hr Q10H IV Last administered on 03/26/17 01:08; Start 03/25/17 at 23:54 Sodium Chloride (NS Flush) 2 ml BID IV FLUSH ; Start 03/26/17 at 09:00 Family History Mother and father are both . Mother of cancer, father of MS Social History Previous heavy tobacco abuse for greater than 20 years quit; smoking in 2003 No illicit drug use No alcohol use Physical Exam Vital Signs Vital Signs Date Time Temp Pulse Resp B/P Pulse Ox O2 Delivery O2 Flow Rate FiO2 03/26/17 04:24 78 03/26/17 01:45 98.1 76 18 168/76 96 03/26/17 01:07 79 18 165/77 97 Room Air 03/25/17 22:00 90 18 181/82 100 Room Air 03/25/17 17:16 98.0 90 16 192/89 99 Physical Exam GENERAL: This is a well-nourished, well-developed patient, in no apparent distress. SKIN: No rashes, ecchymoses or lesions. Cool and dry. HEAD: Atraumatic. Normocephalic. No temporal or scalp tenderness. EYES: Pupils equal round and reactive. Extraocular motions intact. No scleral icterus. No injection or drainage. ENT: Nose without bleeding, purulent drainage or septal hematoma. Throat without erythema, tonsillar hypertrophy or exudate. Uvula midline. Airway patent. NECK: Trachea midline. No JVD or lymphadenopathy. Supple, nontender, no meningeal signs. CARDIOVASCULAR: Regular rate and rhythm without murmurs, gallops, or rubs. RESPIRATORY: Clear to auscultation. Breath sounds equal bilaterally. No wheezes , rales, or rhonchi. GASTROINTESTINAL: Abdomen soft, non-tender, nondistended. No hepato-splenomegaly , or palpable masses. No guarding. MUSCULOSKELETAL: Extremities without clubbing, cyanosis, or edema. No joint tenderness, effusion, or edema noted. No calf tenderness. Negative Homans sign bilaterally. NEUROLOGICAL: Awake and alert. Cranial nerves II through XII intact. Motor and sensory grossly within normal limits. Five out of 5 muscle strength in all muscle groups. Normal speech. Laboratory Laboratory Tests Test 03/25/17 21:25 White Blood Count 13.7 Red Blood Count 4.60 Hemoglobin 13.9 Hematocrit 41.8 Mean Corpuscular Volume 90.9 Mean Corpuscular Hemoglobin 30.2 Mean Corpuscular Hemoglobin 33.2 Concent Red Cell Distribution Width 14.0 Platelet Count 350 Mean Platelet Volume 9.0 Neutrophils (%) (Auto) 56.4 Lymphocytes (%) (Auto) 31.1 Monocytes (%) (Auto) 9.0 Eosinophils (%) (Auto) 2.9 Basophils (%) (Auto) 0.6 Neutrophils # (Auto) 7.7 Lymphocytes # (Auto) 4.3 Monocytes # (Auto) 1.2 Eosinophils # (Auto) 0.4 Basophils # (Auto) 0.1 CBC Comment AUTO DIFF Differential Comment AUTO DIFF CONFIRMED Platelet Estimate NORMAL Platelet Morphology Comment NORMAL Urine Color LIGHT-YELLOW Urine Turbidity HAZY Urine pH 7.5 Urine Specific [place] 1.011 Urine Protein TRACE Urine Glucose (UA) NEG Urine Ketones NEG Urine Occult Blood TRACE Urine Nitrite POS Urine Bilirubin NEG Urine Urobilinogen LESS THAN 2.0 Urine Leukocyte Esterase LARGE Urine RBC 2 Urine WBC 133 Urine WBC Clumps FEW Urine Squamous Epithelial 3 Cells Urine Transitional Epithelial <1 Cells Urine Bacteria MOD Urine Yeast (Budding) MOD Microscopic Urinalysis Comment CULTURE INDICATED Sodium Level 138 Potassium Level 4.1 Chloride Level 102 Carbon Dioxide Level 28.9 Anion Gap 7 Blood Urea Nitrogen 12 Creatinine 0.89 Estimat Glomerular Filtration 63 Rate Random Glucose 102 Calcium Level 8.4 Ammonia 39 Phenytoin (Dilantin) Level 41.1 Date/Time Procedure Status Source Growth 03/25/17 21:25 Urine Culture Received Urine Clean Catch Pending Result Diagram: 03/25/17212403/25/172124 Assessment and Plan Problem List: (1) Falls (2) Hx of deep venous thrombosis (3) Bipolar disorder (4) UTI (urinary tract infection) (5) Dilantin toxicity (6) BENIGN HYPERTENSION Assessment and Plan Admit to Dr. Burciaga 67-year-old female with a history of seizures, unsteady gait, hypertension. Presented to the emergency room with frequent falls over the last 3 day. Describes as simply collapsing, no preceding symptoms. In the emergency room, patient was evaluated and was noted with UTI and Dilantin toxicity, level XLI.1. Also noted with ammonia of 39. Falls, possibly secondary to Dilantin toxicity, also has UTI, no recent seizures. -Follow Dilantin level, currently pending Hold Dilantin at this time Consult physical therapy for evaluation We will do a CT of the head -Orthostatics every shift Urinary tract infection culture pending Continue with antibiotics and follow cultures Elevated ammonia, etiology unclear Repeat ammonia level Hypertension, initially uncontrolled, now improving. Patient's been admitted in the past for uncontrolled hypertension however patient is not on any medications as they were discontinued because of hypotension. -Continue to monitor blood pressure, we will add Vasotec when necessary for systolic greater than 160 diastolic greater than 90 -It may be patient needs to be put on maintenance blood pressure medication. Seizure disorder, stable, no recent seizures. On Dilantin Seizure precautions Bipolar disorder, stable Continue home medications SCDs for DVT prophylaxis Physical therapy for evaluation and treatment Plan of care is discussed with the patient, attending and registered nurse. Further management of the patient will be dependent on the hospital course This patient was seen by myself and Dr. Burciaga, this H&P is written on his behalf Problem Qualifiers (1) Falls: Qualified Code: W19.XXXA - Falls, initial encounter (2) UTI (urinary tract infection): Qualified Code: N39.0 - Urinary tract infection without hematuria, site unspecified (3) Dilantin toxicity: Qualified Code: T42.0X1A - Dilantin toxicity, accidental or unintentional, initial encounter Macie Orozco Mar 26, 2017 07:50
[2017-03-26] MEDS ORDERED: ENALAPRILAT 1.25 MG/ML VIAL IV PUSH PRN (08:15)
[2017-03-26] MEDS: FAMOTIDINE 20 MG TAB PO SCH ×2 (08:50→21:14)
[2017-03-26] MEDS: GABAPENTIN 100 MG CAP PO SCH ×2 (08:50→21:14)
[2017-03-26] MEDS: QUEtiapine FUMARATE 100 MG TAB PO SCH ×2 (08:50→21:15)
[2017-03-26] MEDS: DOCUSATE SODIUM 50 MG/SENNA 8.6 MG TAB PO SCH ×2 (08:50→21:14)
[2017-03-26] MEDS: SERTRALINE HCL 100 MG TAB PO SCH (08:50)
[2017-03-26] MEDS: SODIUM CHLORIDE 0.9% FLUSH 10 ML FLUSH IV FLUSH SCH ×2 (08:51→21:00)
--- NOTE | 2017-03-26 09:23 | RADRPT ---
EXAM DATE/TIME: 03/26/2017 09:02 [place] COMPARISON: CT BRAIN W/O CONTRAST, October 14, 2016, 14:05. INDICATIONS : Dizziness. RADIATION DOSE: 38.35 CTDIvol (mGy) MEDICAL HISTORY : Seizures. Hypertension. SURGICAL HISTORY : Hysterectomy. ENCOUNTER: Initial ACUITY: 1 day PAIN SCALE: 0/10 LOCATION: Bilateral cranial TECHNIQUE: Multiple contiguous axial images were obtained of the head. Using automated exposure control and adj ustment of the mA and/or kV according to patient size, radiation dose was kept as low as reasonably a chievable to obtain optimal diagnostic quality images. FINDINGS: CEREBRUM: There is generalized cerebral atrophy. Ventricles are normal in size. No evidence of midline shift, mass lesion, hemorrhage or acute infarction. No extra-axial fluid collections are seen. POSTERIOR FOSSA: The cerebellum and brainstem demonstrate no acute finding. There is cerebral atrophy. The 4th ventri ct is midline. The cerebellopontine angle is unremarkable. EXTRACRANIAL: There is a small air-fluid level in the right sphenoid sinus. SKULL: The calvaria is intact. No evidence of skull fracture. CONCLUSION: 1. No acute intracranial abnormality is identified. Overall, stable exam. 2. Small air-fluid level in the right sphenoid sinus. Umesh Wilder MD on March 26, 2017 at 9:17 Board Certified Radiologist. This report was verified electronically.
[2017-03-26] MEDS: cefTRIAXone INJ 1,000 MG in SODIUM CHLORIDE 0.9% INJ 100 ML IV SCH (11:22)
--- NOTE | 2017-03-26 13:13 | EKG ---
Date Performed: 03/25/2017 Time Performed: 21:33:28 PTAGE: 67 years EKG: Sinus rhythm NORMAL ECG WARNING: DATA QUALITY MAY AFFECT INTERPRETATION PREVIOUS TRACING : 10/14/2016 11.04 Compared to prior tracing no significant change DOCTOR: Jose Luis Michaels Interpretating Date/Time 03/26/2017 13:11:33
[2017-03-26] MEDS: ACETAMINOPHEN 325 MG TAB PO PRN (16:36)
[2017-03-26] MEDS: ALPRAZolam 0.25 MG TAB PO PRN (21:20)
[2017-03-27] VITALS (8 sets, daily range): BP systolic 134–184; BP diastolic 65–94; PULSE 78–99; RESP 18–19; TEMP 97–98.2; O2SAT 96–98
[2017-03-27] MEDS: SODIUM CHLOR 0.9% 1000 ML INJ 1,000 ML IV SCH (05:54)
--- NOTE | 2017-03-27 06:34 | HHI.PR ---
Subjective Remarks slept well anxious to leave today has been getting up to bathroom, gait not as unsteady orthos negative no cp no sob no fever Objective Objective Results - Vital Signs Date Time Temp Pulse Resp B/P Pulse Ox O2 Delivery O2 Flow Rate FiO2 03/27/17 03:44 98.2 84 19 141/92 97 03/26/17 23:05 98.2 84 20 148/74 97 03/26/17 20:33 97.5 75 20 138/67 98 03/26/17 19:52 98.0 85 18 143/71 96 149/69 147/72 03/26/17 15:50 97.2 68 18 150/70 96 03/26/17 12:01 98.0 85 18 155/77 96 03/26/17 08:47 96.8 78 18 132/82 96 140/69 197/89 03/26/17 08:00 81 I/O 03/26/17 03/26/17 03/26/17 03/27/17 03/27/17 03/27/17 07:00 15:00 23:00 07:00 15:00 23:00 Intake Total 240 ml 880 ml Balance 240 ml 880 ml Intake Oral 240 ml 480 ml IV Total 400 ml # Voids 1 2 2 Result Diagram: 03/25/17212403/25/172124 Other Results Laboratory Tests Test 03/26/17 03/26/17 06:41 12:39 Phenytoin (Dilantin) Level 36.7 Ammonia 25 Date/Time Procedure Status Source Growth 03/25/17 21:25 Urine Culture - Preliminary Resulted Urine Clean Catch Gram Negative Espinoza ROS General: No: Fatigue, Weakness HEENT: No: Sore Throat, Dysphagia Cardiac: No: Chest Pain, Edema, Palpitations Pulmonary: No: Cough, SOB, Wheezing GI: No: Abdominal Pain, BM, Diarrhea, N/V /SYSTEM ARCHITECT: No: Dysuria, Urgency Neuro/MS: Other (unsteady gait ), No: Lightheaded, Confusion Psych: No: Anxiety, Depression Skin: No: Itching, Rash Physical Exam Physical Exam GENERAL: This is a well-nourished, well-developed patient, in no apparent distress. SKIN: No rashes, ecchymoses or lesions. Cool and dry. HEAD: Atraumatic. Normocephalic. No temporal or scalp tenderness. EYES: Pupils equal round and reactive. Extraocular motions intact. No scleral icterus. No injection or drainage. ENT: Nose without bleeding, purulent drainage or septal hematoma. Throat without erythema, tonsillar hypertrophy or exudate. Uvula midline. Airway patent. NECK: Trachea midline. No JVD or lymphadenopathy. Supple, nontender, no meningeal signs. CARDIOVASCULAR: Regular rate and rhythm without murmurs, gallops, or rubs. RESPIRATORY: Clear to auscultation. Breath sounds equal bilaterally. No wheezes , rales, or rhonchi. GASTROINTESTINAL: Abdomen soft, non-tender, nondistended. No hepato-splenomegaly , or palpable masses. No guarding. MUSCULOSKELETAL: Extremities without clubbing, cyanosis, or edema. No joint tenderness, effusion, or edema noted. No calf tenderness. Negative Homans sign bilaterally. NEUROLOGICAL: Awake and alert. Cranial nerves II through XII intact. Motor and sensory grossly within normal limits. Five out of 5 muscle strength in all muscle groups. Normal speech. Urinary Catheter: No Vascular Central Line Catheter: No A/P Diagnosis: (1) Falls (2) Hx of deep venous thrombosis (3) Bipolar disorder (4) UTI (urinary tract infection) (5) Dilantin toxicity (6) BENIGN HYPERTENSION Assessment and Plan 67-year-old female with a history of seizures, unsteady gait, hypertension. Presented to the emergency room with frequent falls over the last 3 day. Describes as simply collapsing, no preceding symptoms. In the emergency room, patient was evaluated and was noted with UTI and Dilantin toxicity, level XLI.1. Also noted with ammonia of 39. Falls, possibly secondary to Dilantin toxicity, also has UTI, no recent seizures. -CT head neg. -Orthostatics ok -Follow Dilantin level, currently pending Hold Dilantin at this time PT eval pending, pt. OOB to ambulate today Urinary tract infection, GNR, sens Continue with antibiotics -UC GNR, sens pending Elevated ammonia, etiology unclear Repeat ammonia 25 Hypertension, initially uncontrolled, now improving. Patient's been admitted in the past for uncontrolled hypertension however patient is not on any medications as they were discontinued because of hypotension. -Continue to monitor blood pressure, we will add Vasotec when necessary for systolic greater than 160 diastolic greater than 90 -BP has been better, 140s Seizure disorder, stable, no recent seizures. On Dilantin Seizure precautions Bipolar disorder, stable Continue home medications SCDs for DVT prophylaxis Physical therapy for evaluation and treatment OOB to ambulate today f/u UC and dilantin level CM for dc planning, [facility] with PT poss dc later today D/W RN D/W Dr. Burciaga D/W pt. This patient was seen by myself and Dr. Burciaga, this note is written on his behalf Problem Qualifiers (1) Falls: Qualified Code: W19.XXXA - Falls, initial encounter (2) UTI (urinary tract infection): Qualified Code: N39.0 - Urinary tract infection without hematuria, site unspecified (3) Dilantin toxicity: Qualified Code: T42.0X1A - Dilantin toxicity, accidental or unintentional, initial encounter Macie Orozco Mar 27, 2017 06:34
--- NOTE | 2017-03-27 06:53 | HHI.FF ---
Face to Face Verification Diagnosis: (1) Falls (2) Dilantin toxicity (3) Hx of deep venous thrombosis (4) BENIGN HYPERTENSION (5) Bipolar disorder (6) Hypertension, uncontrolled (7) UTI (urinary tract infection) (8) Ataxia Physical Therapy Order: Evaluate and Treat Home Health Nursing Order: Medical education Signs/symptoms of disease process Medication education-adverse effect Nursing assessment with vital signs I have seen patient Emilia Newell on 03/27/17. My clinical findings support the need for the requested home health care services because: Deconditioned w/ increased weakness Med compliance is questionable Need for psychosocial assistance Impaired cognition/judgement High risk of falls I certify that my clinical findings support that this patient is homebound because: Impaired cognitive ability/safety Unsteady gait/balance Need for psychosocial assistance Macie Orozco Mar 27, 2017 06:53 Lucia Rios MD Mar 29, 2017 09:47
[2017-03-27 07:56] LABS: HEMATOCRIT 41.1 % (35.0-46.0); MEAN CELL VOLUME 91.8 FL (80.0-100.0); MEAN CORPUSCULAR HEMOGLOBIN 29.5 PG (27.0-34.0); MEAN CORPUSCULAR HGB CONC 32.2 % (32.0-36.0); PLATELET COUNT 263 TH/MM3 (150-450); RED BLOOD COUNT 4.48 MIL/MM3 (4.00-5.30); RED CELL DISTRIBUTION WIDTH 14.1 % (11.6-17.2); REVIEW FLAG FINAL; WHITE BLOOD COUNT 12.3 TH/MM3 (4.0-11.0)
[2017-03-27] MEDS: FAMOTIDINE 20 MG TAB PO SCH ×2 (08:56→21:56)
[2017-03-27] MEDS: DOCUSATE SODIUM 50 MG/SENNA 8.6 MG TAB PO SCH ×2 (08:56→21:56)
[2017-03-27] MEDS: GABAPENTIN 100 MG CAP PO SCH ×2 (08:56→21:56)
[2017-03-27] MEDS: QUEtiapine FUMARATE 100 MG TAB PO SCH ×2 (08:56→21:55)
[2017-03-27] MEDS: SODIUM CHLORIDE 0.9% FLUSH 10 ML FLUSH IV FLUSH SCH ×2 (08:56→21:55)
[2017-03-27] MEDS: SERTRALINE HCL 100 MG TAB PO SCH (08:56)
[2017-03-27] MEDS: cefTRIAXone INJ 1,000 MG in SODIUM CHLORIDE 0.9% INJ 100 ML IV SCH (12:03)
[2017-03-27] MEDS: CEFUROXIME AXETIL 250 MG TAB PO SCH (21:55)
[2017-03-27] MEDS: ALPRAZolam 0.25 MG TAB PO PRN (21:56)
[2017-03-27] MEDS: ACETAMINOPHEN 325 MG TAB PO PRN (21:56)
[2017-03-28] VITALS: BP 148/68; PULSE 77; RESP 16; TEMP 98; O2SAT 95
[2017-03-28 04:16] VITALS: BP 184/79; PULSE 68; RESP 18; TEMP 98.1; O2SAT 98
--- NOTE | 2017-03-28 07:33 | HHI.PR ---
Subjective Remarks awakens easily no chest pain or SOB realizes she is weak, but wants to go home afebrile mild sys BP elevation this am (Brittni Rios) Objective Objective Results - Vital Signs Date Time Temp Pulse Resp B/P Pulse Ox O2 Delivery O2 Flow Rate FiO2 03/28/17 04:16 98.1 68 18 184/79 98 03/28/17 00:00 98.0 77 16 148/68 95 03/27/17 23:23 78 03/27/17 23:04 18 03/27/17 19:41 98.1 85 18 174/94 98 03/27/17 16:00 97.7 84 18 140/65 96 03/27/17 11:44 97.0 84 18 147/67 97 03/27/17 08:48 99 03/27/17 08:00 97.6 85 18 184/77 96 134/71 163/79 I/O 03/27/17 03/27/17 03/27/17 03/28/17 03/28/17 03/28/17 07:00 15:00 23:00 07:00 15:00 23:00 Intake Total 440 ml 240 ml Balance 440 ml 240 ml Intake Oral 240 ml 240 ml IV Total 200 ml # Voids 2 1 1 2 (Brittni Rios) Result Diagram: 03/27/1747 03/25/172124 ROS General: Fatigue, Weakness, Other (10 point ROS done, positives noted) Pulmonary: Cough (occ.) Neuro/MS: Other (pleasant situational reorientation) (Brittni Rios) Physical Exam Physical Exam PHYSICAL EXAMINATION GENERAL: This is a well-developed, elderly female who appears to be in no acute distress. She is alert and awake, HEAD: Normocephalic , atramatic OROPHARYNGEAL: Oropharynx clear NECK: Supple. Trachea midline without deviation. CARDIAC: Regular rhythm, regular rate, S1 and S2 are heard. LUNGS: Clear to auscultation bilaterally. volumes normal ABDOMEN: Soft, nontender, no organomegaly or masses. Bowel sounds active EXTREMITIES: no edema. Pulses intact NEUROLOGICAL: Patient mood and affect appropriate. SKIN:Warm and moist Objective Remarks Im hoping to go home (Brittni Rios) A/P Assessment and Plan (1) Falls (2) Hx of deep venous thrombosis (3) Bipolar disorder (4) UTI (urinary tract infection) (5) Dilantin toxicity (6) BENIGN HYPERTENSION Assessment and Plan History note 67-year-old female with a history of seizures, unsteady gait, hypertension. Presented to the emergency room with frequent falls over the last 3 day. Describes as simply collapsing, no preceding symptoms. In the emergency room, patient was evaluated and was noted with UTI and Dilantin toxicity, level XLI.1. Also noted with ammonia of 39. Falls, possibly secondary to Dilantin toxicity, also has UTI, no recent seizures., generalized weakness continues Dilantin level, and hold dose, trending down PT eval , recommends short term rehab for mobility UTI Continue with antibiotics Elevated ammonia, monitor Repeat ammonia 25 now, normal trends Hypertension, initially uncontrolled systolic this am. -Continue to monitor blood pressure, we will add Vasotec when necessary for systolic greater than 160 diastolic greater than 90 Encourage PO fluids for hydration Seizure disorder, stable, no recent seizures. On Dilantin Seizure precautions Bipolar disorder, stable Continue home medications SCDs for DVT prophylaxis Physical therapy for evaluation and treatment OOB with help CM for dc planning, HHC? vs short term rehab, pending today probable D/W RN D/W Dr. Rios, seen on his behalf D/W pt. (Brittni Rios) Assessment and Plan pt seen and examined as above labs rad data and meds reviewed some of previous notes reviewed dw pt wilian clemons about plan of care and above note dw rn pt is walking with walker History increase in Dilantin level. We will monitor her ins and outs. She warrants inpatient admission. To prevent her from further deterioration because of her increased Dilantin level with falls. She lives alone at home. She will be here for 3-4 days. (Lucia Rios MD) Brittni Rios Mar 28, 2017 07:33 Lucia Rios MD Mar 28, 2017 10:29
[2017-03-28 07:48] VITALS: BP 130/67; PULSE 79; RESP 14; TEMP 97.7; O2SAT 96
[2017-03-28] MEDS: GABAPENTIN 100 MG CAP PO SCH ×2 (09:12→21:06)
[2017-03-28] MEDS: DOCUSATE SODIUM 50 MG/SENNA 8.6 MG TAB PO SCH ×2 (09:12→21:07)
[2017-03-28] MEDS: QUEtiapine FUMARATE 100 MG TAB PO SCH ×2 (09:12→21:07)
[2017-03-28] MEDS: FAMOTIDINE 20 MG TAB PO SCH ×2 (09:13→21:08)
[2017-03-28] MEDS: SERTRALINE HCL 100 MG TAB PO SCH (09:13)
[2017-03-28] MEDS: CEFUROXIME AXETIL 250 MG TAB PO SCH ×2 (09:13→21:07)
[2017-03-28] MEDS: SODIUM CHLORIDE 0.9% FLUSH 10 ML FLUSH IV FLUSH SCH ×2 (09:13→21:00)
[2017-03-28 11:42] VITALS: BP 150/66; PULSE 86; RESP 20; TEMP 98.1; O2SAT 97
[2017-03-28 15:18] VITALS: BP 124/62; PULSE 82; RESP 17; TEMP 98.5; O2SAT 96
[2017-03-28 19:35] VITALS: BP 153/88; PULSE 82; RESP 18; TEMP 98.8; O2SAT 98
[2017-03-29 00:08] VITALS: BP 162/78; PULSE 86; RESP 20; TEMP 98.1; O2SAT 98
[2017-03-29 04:33] VITALS: BP 125/60; PULSE 79; RESP 20; TEMP 97; O2SAT 96
[2017-03-29 08:05] VITALS: PULSE 74
[2017-03-29 08:13] VITALS: BP 174/83; PULSE 83; RESP 18; TEMP 97.8; O2SAT 96
[2017-03-29] MEDS: SODIUM CHLORIDE 0.9% FLUSH 10 ML FLUSH IV FLUSH SCH (08:31)
[2017-03-29] MEDS: FAMOTIDINE 20 MG TAB PO SCH (08:32)
[2017-03-29] MEDS: CEFUROXIME AXETIL 250 MG TAB PO SCH (08:32)
[2017-03-29] MEDS: GABAPENTIN 100 MG CAP PO SCH (08:32)
[2017-03-29] MEDS: SERTRALINE HCL 100 MG TAB PO SCH (08:32)
[2017-03-29] MEDS: QUEtiapine FUMARATE 100 MG TAB PO SCH (08:33)
[2017-03-29] MEDS: ACETAMINOPHEN 325 MG TAB PO PRN (08:33)
[2017-03-29] MEDS: DOCUSATE SODIUM 50 MG/SENNA 8.6 MG TAB PO SCH (08:33)
[2017-03-29] MEDS ORDERED: PHEN100C PO (09:46)
[2017-03-29] MEDS ORDERED: Cefuroxime PO (09:46)
[2017-03-29] MEDS ORDERED: WALKER WHEELS/F1 MIS (09:49)
[2017-03-29 09:58] VITALS: BP 124/58
--- NOTE | 2017-03-29 10:04 | HHI.PR ---
Subjective Remarks alert, resting in bed afebrile As any acute pain Dilantin level normal this a.m. No nausea No yellow vision (Brittni Rios) Objective Objective Results - Vital Signs Date Time Temp Pulse Resp B/P Pulse Ox O2 Delivery O2 Flow Rate FiO2 03/29/17 08:13 97.8 83 18 174/83 96 03/29/17 08:05 74 03/29/17 04:33 97.0 79 20 125/60 96 03/29/17 00:08 98.1 86 20 162/78 98 03/28/17 19:35 98.8 82 18 153/88 98 03/28/17 15:18 98.5 82 17 124/62 96 03/28/17 11:42 98.1 86 20 150/66 97 I/O 03/28/17 03/28/17 03/28/17 03/29/17 03/29/17 03/29/17 07:00 15:00 23:00 07:00 15:00 23:00 Intake Total 400 ml Balance 400 ml Intake Oral 400 ml IV Total 0 ml # Voids 2 1 # Bowel Movements 0 (Brittni Rios) Result Diagram: 03/27/17 0647 03/25/172124 ROS General: Weakness, Other (10 point ROS done positives noted) Pulmonary: SOB GI: BM (bowel regimen) (Brittni Rios) Physical Exam Physical Exam PHYSICAL EXAMINATION GENERAL: This is a elderly well developed female who appears to be in no acute distress. She is alert and awake, HEAD: Normocephalic, atraumatic, denies any yellow vision OROPHARYNGEAL: Oropharynx clear NECK: Supple. Trachea midline CARDIAC: Regular rhythm, regular rate, S1 and S2 are heard. LUNGS: Clear to auscultation bilaterally. Lung volumes adequate ABDOMEN: Soft, nontender, bowel sounds present EXTREMITIES: no edema. Pulses equal bilateral. NEUROLOGICAL: Patient mood and affect appropriate. No focal deficit SKIN:Warm and moist (Brittni Rios) A/P Assessment and Plan (1) Falls (2) Hx of deep venous thrombosis (3) Bipolar disorder (4) UTI (urinary tract infection) (5) Dilantin toxicity (6) BENIGN HYPERTENSION Assessment and Plan History note 67-year-old female with a history of seizures, unsteady gait, hypertension. Presented to the emergency room with frequent falls over the last 3 day. Describes as simply collapsing, no preceding symptoms. In the emergency room, patient was evaluated and was noted with UTI and Dilantin toxicity, level XLI.1. Also noted with ammonia of 39. Vital signs reviewed normal trends Labs reviewed, Dilantin level normal 17.7 Falls, possibly secondary to Dilantin toxicity, also has UTI, no recent seizures., Generalized weakness improving patient able to get up with walker, no dizziness Dilantin level, normal trends today PT eval , recommends short term rehab for mobility, patient is working on a more stationary walker for now UTI, stable Continue with antibiotics Elevated ammonia resolved Repeat ammonia 25 now, normal trends Hypertension, initially uncontrolled systolic this am. -Continue to monitor blood pressure, we will add Vasotec when necessary for systolic greater than 160 diastolic greater than 90 Encourage PO fluids for hydration Seizure disorder, stable, no recent seizures. On Dilantin Seizure precautions Bipolar disorder, stable Continue home medications SCDs for DVT prophylaxis Physical therapy for evaluation and treatment OOB with help CM for dc planning, [facility]? vs short term rehab, stable for discharge today with normal Dilantin level D/W RN D/W Dr. Rios, seen on his behalf D/W pt. (Brittni Rios) Assessment and Plan pt seen and examined as above dw pt about dc planning with [facility] wilian clemons about plan of care and above note dw briefcase sewer about dc planning dc home today (Lucia Rios MD) Brittni Rios Mar 29, 2017 10:04 Lucia Rios MD Mar 29, 2017 10:43
--- NOTE | 2017-03-29 10:07 | HHI.FF ---
Face to Face Verification Diagnosis: (1) Dilantin toxicity (2) Falls (3) UTI (urinary tract infection) (4) Generalized weakness (5) Ataxia (6) Bipolar disorder (7) Hypertension, uncontrolled Physical Therapy Order: Evaluate and Treat, Improve ambulation, Strength and gait training Occupational Therapy Order: Evaluate and Treat, Gross motor coordination, Fine motor coordination Home Health Nursing Order: Medication education-adverse effect Nursing assessment with vital signs I have seen patient Emilia Newell on 03/29/17. My clinical findings support the need for the requested home health care services because: Deconditioned w/ increased weakness High risk of falls I certify that my clinical findings support that this patient is homebound because: Unsteady gait/balance Brittni Rios Mar 29, 2017 10:07
--- NOTE | 2017-03-29 15:14 | HHI.DS ---
Discharge Summary Admission Date Mar 28, 2017 at 16:42 Discharge Date: Mar 29, 2017 Admitting Diagnosis dilantin toxicity, UTI (1) Falls Diagnosis: Principal (2) Hx of deep venous thrombosis Diagnosis: Secondary (3) Bipolar disorder Diagnosis: Secondary (4) UTI (urinary tract infection) Diagnosis: Principal (5) Dilantin toxicity Diagnosis: Principal (6) BENIGN HYPERTENSION Diagnosis: Secondary Brief History This was a pleasant 67-year-old white female with significant past medical history of seizure disorder on Dilantin, arthritis, sciatica, chronic unsteady gait, hypertension. Patient presented to the emergency room complaining of frequent falls over the last 2-3 days. Patient indicated that she had unsteady gait and occasionally used a rolling walker. The last couple days she's noticed that every time she gets up she just collapses to the floor. She denied any preceding symptoms such as dizziness, lightheadedness, changes in vision, no chest pain, no shortness of breath. She denied hitting her head, no loss of consciousness. Every time she was able to stand up without any difficulty. She complains of some pain to her knees from the falls. She denied any recent fever, no chills. CBC/BMP: 03/27/17 0647 03/25/17 2125 Significant Findings Laboratory Tests Test 03/27/17 03/28/17 06:47 07:22 White Blood Count 12.3 TH/MM3 (4.0-11.0) Phenytoin (Dilantin) Level 27.6 MCG/ML 24.1 MCG/ML (10.0-20.0) (10.0-20.0) PE at Discharge PHYSICAL EXAMINATION GENERAL: This is a elderly well developed female who appears to be in no acute distress. She is alert and awake, HEAD: Normocephalic, atraumatic, denies any yellow vision OROPHARYNGEAL: Oropharynx clear NECK: Supple. Trachea midline CARDIAC: Regular rhythm, regular rate, S1 and S2 are heard. LUNGS: Clear to auscultation bilaterally. Lung volumes adequate ABDOMEN: Soft, nontender, bowel sounds present EXTREMITIES: no edema. Pulses equal bilateral. NEUROLOGICAL: Patient mood and affect appropriate. No focal deficit SKIN:Warm and moist Hospital Course In the emergency room, patient was evaluated, laboratory workup was remarkable for Dilantin level of 41.1. Ammonia was 39. Urinalysis was positive for urinary tract infection. She denied any urinary symptoms. She indicated she called her primary care to get in to be seen however she couldn't get an appointment. Patient stated she's been well-controlled with her seizures since been on Dilantin. She has lab work every 3 months. In the emergency room, she was started on empiric antibiotics. At the time she was examined, she had no complaints. Patient was admitted for further evaluation and treatment. These are the diagnoses that were used to treat this patient during her brief hospital stay (1) Falls (2) Hx of deep venous thrombosis (3) Bipolar disorder (4) UTI (urinary tract infection) (5) Dilantin toxicity (6) BENIGN HYPERTENSION Assessment and Plan History note 67-year-old female with a history of seizures, unsteady gait, hypertension. Presented to the emergency room with frequent falls over the last 3 day. Describes as simply collapsing, no preceding symptoms. In the emergency room, patient was evaluated and was noted with UTI and Dilantin toxicity, level XLI.1. Also noted with ammonia of 39. Vital signs reviewed normal trends throughout her hospital stay Labs reviewed, Dilantin level reviewed daily until her trends were normal 17.7. This was on day of discharge Falls, possibly secondary to Dilantin toxicity, also has UTI, no recent seizures., Generalized weakness improving patient able to get up with walker, no dizziness PT evaluated during this hospital stay and initially recommended short term rehab for mobility, patient is working on a more stationary walker for now Next day patient did much better with her mobility and ambulation. It was thought that she was safe to discharge home with home health care. UTI, stable Continue with antibiotics Elevated ammonia resolved Repeat ammonia 25 now, normal trends Hypertension, monitored throughout hospital stay and was noted to be labile at times -Continue to monitor blood pressure, we will add Vasotec when necessary for systolic greater than 160 diastolic greater than 90 Encourage PO fluids for hydration Seizure disorder, stable, no recent seizures. On Dilantin Seizure precautions Bipolar disorder, stable Continue home medications SCDs for DVT prophylaxis On day of discharge Dr. Rios and noted his assessment. Patient was recommended for stable medical discharge. pt seen and examined as above dw pt about dc planning with [facility] wilian patient access director about plan of care and above note dw briefcase sewer about dc planning dc home today Lucia Rios MD Pt Condition on Discharge: Good Discharge Disposition: Disch w/ Home Health Serv Discharge Instructions DIET: Follow Instructions for: Heart Healthy Diet Activities you can perform: Weight Bearing as Gomez Other Activity Instructions: with walker Follow up Referrals: PCP Follow-up - 3-5 Days New Medications: Walker with Front Wheels (Walker with Front Wheels) 1 Mis Mis 1 EA .ROUTE DIRECTED #1 Ref 0 EA ([Cefuroxime]) 250 MG TAB 250 MG PO Q12HR #10 TAB Changed Medications: Phenytoin Extended (Phenytoin Extended) 100 Mg Cap 100 MG PO BID Control Seizures #90 Ref 0 CAP (Changed from: TID) Continued Medications: Alprazolam (Xanax) 0.25 Mg Tab 0.25 MG PO Q4H PRN ANXIETY Ref 0 TAB Calcium Carbonate-Cholecalciferol (Calcium 600 with Vitamin D) 600-400 mg-Unit Tab 1 TAB PO DAILY Calcium Supplement Ref 0 TAB Famotidine (Famotidine) 40 Mg Tab 40 MG PO BID #60 Ref 0 TAB Gabapentin (Gabapentin) 100 Mg Cap 100 MG PO BID #60 Ref 0 CAP Quetiapine (Seroquel) 100 Mg Tab 100 MG PO BID #60 Ref 0 TAB Sertraline (Zoloft) 100 Mg Tab 100 MG PO DAILY #30 Ref 0 TAB Brittni Rios Mar 29, 2017 15:13
== END 2017-03-29 15:58 | disposition home health service (06) | DRG 690 ==
LOC: NEPE 17:14 → NEDA 23:56 → NEPFCDU 03-26 01:28 → OBSVTOIN 03-28 16:42 → N05B 03-28 21:51
PROVIDERS: ADMIT Specialist; ATTEND Specialist
DX: N39.0 Urinary tract infection, site not specified (principal); I10 Essential (primary) hypertension; R26.81 Unsteadiness on feet; R29.6 Repeated falls; T42.0X5A Adverse effect of hydantoin derivatives, initial encounter; M19.90 Unspecified osteoarthritis, unspecified site; F32.9 Major depressive disorder, single episode, unspecified; F41.9 Anxiety disorder, unspecified; K21.9 Gastro-esophageal reflux disease without esophagitis; F17.210 Nicotine dependence, cigarettes, uncomplicated; G40.909 Epilepsy, unspecified, not intractable, without status epilepticus; Z86.718 Personal history of other venous thrombosis and embolism; Z87.891 Personal history of nicotine dependence
CPT/HCPCS: 70450; 76937; 80048; 80185; 81001; 82140; 85025; 85027; 87077; 87086; 87186; 93005; 99285; G0378; G8987-GP; G8988-GP; J0696; J7030